=== PATIENT | female | born 1945 | race Caucasian/White ===

== ENCOUNTER 2017-10-04 06:18 | Emergency (ER) | payer OTHER, MEDICARE, SELFPAY ==
[2017-10-04 06:19] VITALS: BP 178/85; PULSE 65; RESP 16; TEMP 36.7; O2SAT 99; BMI 36.8
--- NOTE | 2017-10-04 06:32 | CT_ITS ---
STUDY: CT ABDOMEN AND PELVIS WITHOUT CONTRAST REASON FOR EXAM: Female, 72 years old. Abdominal pain for 3 days. History of diverticulitis, irritable bowel syndrome, and skin cancer. History of CABG, gastric sleeve procedure, cholecystectomy, appendectomy, and hysterectomy. RADIATION DOSAGE (If Supplied By Facility): CTDIvol = ( 15.23 ) mGy, DLP = ( 749.66 ) mGycm TECHNIQUE: Transaxial images were obtained from the dome of the diaphragm to the symphysis pubis without oral contrast, and without intravenous contrast. Sagittal and coronal images were reconstructed. Individualized dose optimization techniques were used for this CT. COMPARISON: 02/01/2016. FINDINGS: There are areas of atelectasis at the visualized lung bases bilaterally as well as calcified pulmonary granulomas. There are coronary artery calcifications. There are sternotomy wires and surgical clips suggesting previous CABG. Normal liver. Gallbladder is not identified, consistent with history of cholecystectomy. There is no demonstrated bile duct dilatation. There calcified granulomas in the spleen. Normal pancreas. Normal bilateral adrenal glands. Normal right kidney. Normal left kidney. Patient is status post gastric sleeve procedure. There is a small hiatal hernia. Normal small intestine. There are colonic diverticula. There is mural thickening in the proximal sigmoid colon and there is adjacent phlegmonous fat infiltration, consistent with acute diverticulitis. There is no demonstrated abscess, free intraperitoneal air, or ascites. There is non-visualization of the appendix, consistent with given history of prior appendectomy. There is diffuse atherosclerotic calcification of the abdominal aorta, without a demonstrated aneurysm. Normal inferior vena cava. Normal retroperitoneum. Normal urinary bladder. There is absence of the uterus consistent with a prior hysterectomy. There is a small umbilical hernia which contains fat, but no bowel. There are diffuse degenerative changes of the visualized lumbar spine. There is grade 1 anterolisthesis at the L4-5 level, on a degenerative basis. CT/Abdomen/Pelvis without Cont IMPRESSION: Acute diverticulitis of the proximal sigmoid colon. There is no demonstrated diverticula abscess, free intraperitoneal air, or ascites. Atherosclerosis. Previous gastric sleeve procedure. Small hiatal hernia. Previous cholecystectomy, appendectomy, and hysterectomy. Electronically Signed: Sharad Sinha MD at 7:29 EST , Service support ,
--- NOTE | 2017-10-04 06:35 | ED.DCSUM_ITS ---
- ER Visit Summary Date of Service: 10/04/17 Chief Complaint: [Abdominal pain] History of Present Illness: The patient is a 72 F [presents the emergency department with abdominal pain. It started 2 months ago. It slowly getting worse. She has chronic diarrhea that is unchanged. She has occasional nausea and vomiting after eating which she attributes to her gastric sleeve. No fevers or chills. She has had some frequency with urine this is not acute either. She states it does hurt to walk and to sit forward in her left lower quadrant. She gets some cramping across her upper abdomen but attributes that to her IBS. She has a history of coronary artery disease status post CABG atrial fibrillation diverticulitis appendectomy cholecystectomy hysterectomy and multiple orthopedic surgeries] Physical Examination: [] Blood pressure 178/85 WN WD obese PERRL EOMI MMM NECK supple and nontender, no masses RRR no murmur rub or gallop, no peripheral edema, symmetric radial pulses CTAB no respiratory distress ABDOMEN is soft tenderness in the left lower quadrant, normal bowel sounds, no distension, no rebound or guarding SKIN is warm and dry no rashes Alert and Oriented x3, CN II-XII in tact, no motor or sensory deficits, gait normal No lymphadenopathy Test Results: [] Emergency Department Course and Treatment: [Was given morphine and Zofran. Screening labs were obtained. Urinalysis was sent. CT was ordered. CT shows acute diverticulitis. Labs were unremarkable. Patient is very stable. She will be given Cipro Flagyl in [place] for home she was given precautions for which to return and will follow up with her doctor.] Treatment Plan: [] Disposition: [Discharge] Impression: [Acute diverticulitis] This note was generated with [employer] dictation software. It may contain incorrect words, spelling, and punctuation that were not noted in review of the chart prior to signing ED Disposition - Plan for ED Patient: Chief Complaint: Abd Pain Instructions: ED Diverticulitis Prescriptions: Hydrocodone Bitart/Apap 5-325 [[place] 5MG-325MG] 1 tablet PO Q6H PRN PRN 3 Days # 7 tablet PRN Reason: Pain Ciprofloxacin [Cipro] 500 mg PO BID #20 tablet Metronidazole [Flagyl] 500 mg PO Q6H #40 tablet Referrals: Musa Cintron III, MD [Primary Care Provider] - 3-5 Days
[2017-10-04 06:49] LABS: Absolute Lymphocyte Count 1.29 X10^3/ul (0.83-4.51); Absolute Neutrophil Count 4.2 X10^3/uL (2.0-7.7); Basophil# 0.02 X10^3/uL; Basophil% 0.3 % (0-1); Eosinophil# 0.15 X10^3/uL; Eosinophils% 2.4 % (0-5); Hematocrit 37.2 % (37-47); Hemoglobin 12.1 g/dl (12.0-15.0); Lymphocyte # 1.29 X10^3/ul (4.0); Lymphocyte % 20.3 % (19-41); Mean Corp Hgb Conc 32.5 g/gl (32-36); Mean Corpuscular Hgb 27.6 pg (27.0-32.0); Mean Corpuscular Volume 84.9 fL (81-99); Mean Platelet Vol. 8.6 fl (6.2-12.0); Monocyte# 0.66 X10^3/uL; Monocyte% 10.4 % (0-10); Neutrophil # 4.21 X10^3/uL (2.7-7.7); Neutrophil % 66.4 % (47-70); Platelet Count 248 K/mm3 (150-450); RBC Distribution Width CV 14.1 % (11.6-14.6); RBC Distribution Width SD 42.8 fl (35.1-43.9); Red Blood Count 4.38 M/mm3 (4.2-5.4); White Blood Count 6.3 K/mm3 (4.4-11.0)
[2017-10-04 06:57] LABS: POSITIVE COUNT NO; POSITIVE DIFFERENTIAL NO; POSITIVE MORPHOLOGY NO
[2017-10-04 07:05] LABS: ALB/GLOB Ratio 0.8 RATIO (0.9-2.4); AST(SGOT) 14 U/L (15-37); Alanine Aminotransfer ALT/SGPT 24 U/L (13-56); Albumin, Serum 3.2 g/dL (3.2-5.0); Alkaline Phosphatase 90 U/L (45-117); Anion Gap 9 (5-15); BUN 16 mg/dL (7-18); BUN/Creat Ratio 25.6 RATIO (10-20); Calcium,Total 8.4 mg/dL (8.5-10.1); Chloride 104 mmol/L (98-107); Creatinine, Serum 0.63 mg/dL (0.55-1.02); EST Glomerular Filtration Rate 99 mL/min (>60); Est Glom Filt Rate - Afr Amer 120 mL/min (>60); Estimated Creatinine Clearance 39.63 ml/min; Globulin 4.2 g/dL (2.2-4.2); Glucose 115 mg/dL (74-106); Lipase 120 U/L (73-393); Potassium 3.7 mmol/L (3.5-5.1); Protein, Total 7.4 g/dL (6.4-8.2); Sodium Level 140 mmol/L (136-145)
--- NOTE | 2017-10-04 07:26 | ED.DEP ---
ED Disposition - Plan for ED Patient: Chief Complaint: Abd Pain Instructions: ED Diverticulitis Prescriptions: Hydrocodone Bitart/Apap 5-325 [[place] 5MG-325MG] 1 tablet PO Q6H PRN PRN 3 Days #7 tablet PRN Reason: Pain Ciprofloxacin [Cipro] 500 mg PO BID #20 tablet Metronidazole [Flagyl] 500 mg PO Q6H #40 tablet Referrals: Musa Cintron III, MD [Primary Care Provider] - 3-5 Days
--- NOTE | 2017-10-04 07:36 | DCINST.ED_ITS ---
ED Disposition - Plan for ED Patient: Chief Complaint: Abd Pain Instructions: ED Diverticulitis Prescriptions: Hydrocodone Bitart/Apap 5-325 [[place] 5MG-325MG] 1 tablet PO Q6H PRN PRN 3 Days # 7 tablet PRN Reason: Pain Ciprofloxacin [Cipro] 500 mg PO BID #20 tablet Metronidazole [Flagyl] 500 mg PO Q6H #40 tablet Referrals: Musa Cintron III, MD [Primary Care Provider] - 3-5 Days
[2017-10-04 07:40] LABS: Mucous, Urine 0 SEEN /hpf (<or=2+); Red Blood Cells-Urine 0 SEEN /hpf (0-5)
[2017-10-04 07:42] LABS: Color, Urine Yellow (Yellow); Glucose, Dipstick Normal (Normal); Ketone-Dipstick Negative (Negative); Leukocyte Esterase-Dipstick 500 /ul (Negative); Nitrite-Dipstick Negative (Negative); Occult Blood-Urine Negative /ul (Negative); Protein-Dipstick Negative (Negative); Urine Bilirubin Dipstick Negative (Negative); Urine Clarity Clear (Clear); Urine Urobilinogen Normal (Normal)
[2017-10-04 07:50] LABS: Bacteria 1+ /hpf (None Seen); Squamous Epithelial Cells - UA 5-10 SEEN /hpf (5-10); White Blood Cells 0-5 SEEN /hpf (0-5)
[2017-10-04 08:04] VITALS: BP 187/75; PULSE 54; RESP 18; O2SAT 98
== END 2017-10-04 08:06 | disposition home or self-care (01) ==
LOC: ED 07:01
PROVIDERS: Emergency Provider Emergency Medicine; Family Provider Family Medicine; PCP Family Medicine
DX: K57.92 Diverticulitis of intestine, part unspecified, without perforation or abscess without bleeding (principal); I25.10 Atherosclerotic heart disease of native coronary artery without angina pectoris; I48.91 Unspecified atrial fibrillation; E66.9 Obesity, unspecified; K58.9 Irritable bowel syndrome, unspecified; Z90.49 Acquired absence of other specified parts of digestive tract; Z90.710 Acquired absence of both cervix and uterus; Z95.1 Presence of aortocoronary bypass graft
CPT/HCPCS: 74176; 80053; 81001; 83690; 85025; 96374; 96375; 99283

== ENCOUNTER → 2017-12-03 10:26 | Outpatient (CLI) | payer OTHER, MEDICARE, SELFPAY ==
[2017-12-03 11:34] LABS: Hemoglobin A1c 7.3 % (4.2-6.3)
[2017-12-03 11:44] LABS: AST(SGOT) 20 U/L (15-37); Alanine Aminotransfer ALT/SGPT 25 U/L (13-56); Albumin, Serum 3.4 g/dL (3.2-5.0); Alkaline Phosphatase 81 U/L (45-117); Bilirubin, Direct 0.07 mg/dL (0.00-0.30); Cholesterol 214 mg/dL (200); Globulin 4.4 g/dL (2.2-4.2); High Density Lipoprotein 54 mg/dL; Protein, Total 7.8 g/dL (6.4-8.2); Triglycerides 96 mg/dL; Very Low Density Lipoprotein 19 mg/dL (5-40)
== END ==
PROVIDERS: Internal Medicine Cardiovascular Disease; Family Provider Family Medicine; PCP Family Medicine; Visit Provider Physician Assistant Medical
DX: I25.10 Atherosclerotic heart disease of native coronary artery without angina pectoris (principal); I48.0 Paroxysmal atrial fibrillation; E78.5 Hyperlipidemia, unspecified; Z79.899 Other long term (current) drug therapy
CPT/HCPCS: 36415; 80061; 80076; 83036

== ENCOUNTER → 2017-12-13 14:41 | Outpatient (CLI) | payer OTHER, MEDICARE, SELFPAY ==
--- NOTE | 2017-12-13 15:00 | ECHOD_ITS ---
Reason For Study: AORTIC STENOSIS Procedure This was a 2D Doppler, Color Flow transthoracic echocardiogram. Exam performed in department. Left Ventricle Normal LV size. Left ventricular systolic function is normal. The estimated ejection fraction is 55 %. Transmitral diastolic flow velocities suggest mild (stage 1) diastolic dysfunction (reversed pattern). No regional wall motion abnormalities noted. Right Ventricle Normal RV size. Normal systolic function. Atria Normal left atrium. Normal right atrium. Bubble contrast study negative for right to left interatrial shunt. Mitral Valve Normal mitral valve. Trivial eccentric mitral valve insufficiency. Tricuspid Valve Normal tricuspid valve. Mild (1+) tricuspid valve insufficiency. Pulmonary artery systolic pressure is 25 mmHg. Aortic Valve Trisinus/trileaflet aortic valve. Moderate focal aortic valve calcification. Peak aortic valve gradient 18 mmHg. Mean aortic valve gradient 10 mmHg. Mild to moderate aortic stenosis. Calculated aortic valve area (continuity equation) is 1.2 cm2. Pulmonic Valve Normal pulmonic valve. Great Vessels Normal aortic root. The pulmonary artery is normal size. Normal inferior vena cava. Pericardium/Pleural No pericardial effusion. Medication 22 gauge I.V. with prn adaptor inserted into right arm. Performed a rapid injection of agitated mix of 9 cc saline and 1cc air to assess for atrial septal defect. MMode/2D Measurements & Calculations LVIDd: 4.4 cm IVSd: 1.1 cm LVOT diam: 2.0 cm LVIDs: 3.0 cm LVPWd: 1.0 cm LVOT area: 3.2 cm2 RVDd: 2.7 cm FS: 32.2 % Ao root diam: 3.6 cm LAV(MOD-bp): 51.5 ml EDV(MOD-sp4): 88.4 ml LAV(MOD-bp) Indexed: 27.8 ml/m2 ESV(MOD-sp4): 33.3 ml LAV(MOD-sp2): 46.3 ml EF(MOD-sp4): 62.4 % LAV(MOD-sp4): 51.3 ml EDV(MOD-sp2): 67.6 ml SV(MOD-sp4): 55.2 ml SV(MOD-sp2): 39.9 ml EF(MOD-sp2): 59.1 % Aortic Valve Planimetry: 1.6 cm2 LA A4 area: 18.4 cm2 RA A4 area: 15.5 cm2 Doppler Measurements & Calculations MV E max james: 54.0 cm/sec Lat Peak E' James: 6.2 cm/sec Med Peak E' James: 3.1 cm/sec MV A max james: 78.6 cm/sec E/E' lat: 8.7 E/E' med: 17.4 MV E/A: 0.69 Ao V2 max: 214.6 cm/sec LV V1 max: 83.0 cm/sec SV(LVOT): 62.5 ml Ao max P.5 mmHg LV V1 max P.8 mmHg Ao V2 mean: 149.2 cm/sec LV V1 mean P.5 mmHg Ao mean P.9 mmHg LV V1 mean: 57.2 cm/sec Ao V2 VTI: 45.2 cm LV V1 VTI: 19.7 cm DELISA(I,D): 1.4 cm2 DELISA(V,D): 1.2 cm2 PA V2 max: 96.1 cm/sec TR max james: 232.2 cm/sec TR max P.7 mmHg Interpretation Summary Normal LV size. Left ventricular systolic function is normal. The estimated ejection fraction is 55 %. Transmitral diastolic flow velocities suggest mild (stage 1) diastolic dysfunction (reversed pattern). Bubble contrast study negative for right to left interatrial shunt. Mild to moderate aortic stenosis. Calculated aortic valve area (continuity equation) is 1.2 cm2. Compared to prior study, there is no significant change. Ordering Physician: Tita Garcia/Chance Cuellar Referring Physician: RICKY MUNIZ Performed By: Denisha Bocanegra, MICHAELCS, RVT
== END ==
PROVIDERS: Family Provider Family Medicine; PCP Family Medicine; Visit Provider Physician Assistant Medical
DX: I35.0 Nonrheumatic aortic (valve) stenosis (principal)
CPT/HCPCS: 93306; A4216

== ENCOUNTER 2018-02-01 06:17 | Emergency (ER) | payer OTHER, MEDICARE, SELFPAY ==
[2018-02-01 06:18] VITALS: BP 169/82; PULSE 67; RESP 17; TEMP 36.7; O2SAT 98; BMI 34.2
--- NOTE | 2018-02-01 06:28 | CT_ITS ---
STUDY: CT ABDOMEN AND PELVIS WITHOUT CONTRAST REASON FOR EXAM: Female, 72 years old. Left flank pain RADIATION DOSAGE (If Supplied By Facility): CTDIvol = ( 17.75 ) mGy, DLP = ( 833.87 ) mGycm TECHNIQUE: Transaxial images were obtained from the dome of the diaphragm to the symphysis pubis without oral contrast, and without intravenous contrast. Sagittal and coronal images were reconstructed. Individualized dose optimization techniques were used for this CT. COMPARISON: None. FINDINGS: The visualized lung bases are unremarkable. The visualized portions of the heart are within normal limits. Normal liver. There is non-visualization of the gallbladder, which may be secondary to either contraction or a prior cholecystectomy. Normal spleen. Normal pancreas. Normal bilateral adrenal glands. Normal right kidney. Normal left kidney. There is a small hiatal hernia. Normal small intestine. There are multiple colonic diverticula consistent with diverticulosis. There is non-visualization of the appendix. There is diffuse atherosclerotic calcification of the abdominal aorta, without a demonstrated aneurysm. Normal inferior vena cava. Normal retroperitoneum. Normal urinary bladder. Normal abdominal wall. There are diffuse degenerative changes of the visualized lumbar spine. CT/Abdomen/Pelvis without Cont IMPRESSION: Colon diverticulosis. Electronically Signed: Jorge Bee MD at 7:30 EDT Tel , Service support ,
--- NOTE | 2018-02-01 06:30 | ED.DCSUM_ITS ---
- ER Visit Summary Date of Service: 02/01/18 Chief Complaint: [] Left lower abdominal pain 3 days waxes and wanes aching with intermittent sharp stabbing pain in the left flank. Denies any nausea vomiting or diarrhea. She had diverticulitis in September but does not feel the same. No diarrhea. She used heat. She is aspirin. She has dysuria and frequency. No fevers or chills. History of Present Illness: The patient is a 72 F 3 days of pain. Physical Examination: [] Vital signs reviewed General: Well-nourished well-developed Head: Normocephalic atraumatic Eyes: Pupils equal round and reactive to light extraocular movements intact ENT: TMs clear no hemotympanum no trauma Neck: Nontender full range of motion Cardiovascular: Regular rate rhythm no murmurs normal S1-S2 Respiratory: No distress clear to auscultation bilaterally chest nontender Abdomen: Soft nontender nondistended normal bowel sounds no masses Back: Nontender no CVA tenderness Extremities: Nontender active range of motion ?4 extremities no trauma Skin: Normal color no trauma Neuro alert oriented cranial nerves II through XII intact normal strength sensation reflexes Test Results: [] Emergency Department Course and Treatment: [] Patient has intermittent sharp stabbing left flank pain rating to the groin. I think she has a kidney stone. She has never had one before. Patient given IV fluids. Declined pain meds. Lab work and CT obtained. This will be signed out to the oncoming physician Dr. Jean for further evaluation. Treatment Plan: [] Disposition: [] Impression: [] Left-sided flank pain This note was generated with [employer] dictation software. It may contain incorrect words, spelling, and punctuation that were not noted in review of the chart prior to signing ED Disposition - Plan for ED Patient: Chief Complaint: Abd Pain Referrals: Musa Cintron III, MD [Primary Care Provider] -
[2018-02-01] MEDS: 0.9% Normal Saline 1,000 ML 1000 ML IV (06:47)
[2018-02-01 06:54] LABS: Mucous, Urine 0 SEEN /hpf (<or=2+); Red Blood Cells-Urine 0 SEEN /hpf (0-5)
[2018-02-01 06:55] LABS: Color, Urine Yellow (Yellow); Glucose, Dipstick Normal (Normal); Ketone-Dipstick Negative (Negative); Leukocyte Esterase-Dipstick 500 /ul (Negative); Nitrite-Dipstick Negative (Negative); Occult Blood-Urine Negative /ul (Negative); Protein-Dipstick 30 mg/dl (Negative); Urine Bilirubin Dipstick Negative (Negative); Urine Clarity Sl. Cloudy (Clear); Urine Urobilinogen Normal (Normal)
[2018-02-01 06:56] LABS: Absolute Lymphocyte Count 1.64 X10^3/ul (0.83-4.51); Absolute Neutrophil Count 2.6 X10^3/uL (2.0-7.7); Basophil# 0.02 X10^3/uL; Basophil% 0.4 % (0-1); Eosinophil# 0.21 X10^3/uL; Eosinophils% 4.3 % (0-5); Hematocrit 39.6 % (37-47); Hemoglobin 12.8 g/dl (12.0-15.0); Lymphocyte # 1.64 X10^3/ul (4.0); Lymphocyte % 33.3 % (19-41); Mean Corp Hgb Conc 32.3 g/gl (32-36); Mean Corpuscular Hgb 27.8 pg (27.0-32.0); Mean Corpuscular Volume 85.9 fL (81-99); Mean Platelet Vol. 8.5 fl (6.2-12.0); Monocyte# 0.44 X10^3/uL; Monocyte% 8.9 % (0-10); Neutrophil # 2.61 X10^3/uL (2.7-7.7); Neutrophil % 53.1 % (47-70); Platelet Count 226 K/mm3 (150-450); RBC Distribution Width CV 14.2 % (11.6-14.6); RBC Distribution Width SD 44.7 fl (35.1-43.9); Red Blood Count 4.61 M/mm3 (4.2-5.4); White Blood Count 4.9 K/mm3 (4.4-11.0)
[2018-02-01 07:03] LABS: POSITIVE COUNT NO; POSITIVE DIFFERENTIAL NO; POSITIVE MORPHOLOGY NO
[2018-02-01 07:04] LABS: Squamous Epithelial Cells - UA 0-5 SEEN /hpf (5-10); White Blood Cells 10-25 SEEN /hpf (0-5)
[2018-02-01 07:05] LABS: Bacteria RARE /hpf (None Seen)
[2018-02-01 07:09] LABS: Anion Gap 6 (5-15); BUN 24 mg/dL (7-18); BUN/Creat Ratio 34.1 RATIO (10-20); Calcium,Total 8.8 mg/dL (8.5-10.1); Chloride 106 mmol/L (98-107); EST Glomerular Filtration Rate 87 mL/min (>60); Est Glom Filt Rate - Afr Amer 105 mL/min (>60); Estimated Creatinine Clearance 39.63 ml/min; Glucose 104 mg/dL (74-106); Potassium 3.5 mmol/L (3.5-5.1); Sodium Level 140 mmol/L (136-145)
--- NOTE | 2018-02-01 08:23 | ED.DEP ---
ED Disposition - Plan for ED Patient: Chief Complaint: Abd Pain Instructions: ED UTI Cystitis Female Prescriptions: Ciprofloxacin [Cipro] 500 mg PO BID #14 tab Referrals: Musa Cintron III, MD [Primary Care Provider] -
[2018-02-01 08:50] VITALS: BP 152/86; PULSE 62; RESP 18; O2SAT 100
== END 2018-02-01 08:51 | disposition home or self-care (01) ==
PROVIDERS: Emergency Medicine; Emergency Provider Emergency Medicine; Family Provider Family Medicine; PCP Family Medicine
DX: M25.552 Pain in left hip (principal); N30.90 Cystitis, unspecified without hematuria; K57.90 Diverticulosis of intestine, part unspecified, without perforation or abscess without bleeding; E66.9 Obesity, unspecified; E78.00 Pure hypercholesterolemia, unspecified; E11.9 Type 2 diabetes mellitus without complications; I48.91 Unspecified atrial fibrillation
CPT/HCPCS: 74176; 80048; 81001; 85025; 99283; J7030; A4216

== ENCOUNTER → 2018-07-11 06:38 | Outpatient (CLI) | payer OTHER, MEDICARE, SELFPAY ==
--- NOTE | 2018-07-11 11:11 | STRESSREP ---
Stress Test Report Exercise myocardial perfusion stress test. 72-year-old lady with a history of previous coronary bypass surgery. Medications Zocor metoprolol. Stress protocol: Resting EKG demonstrates sinus bradycardia with a rate of 54 bpm normal intervals are noted resting blood pressure is 140/80 mmHg. The patient exercised according to regular Hardik protocol for total duration of 4 minutes and 40 seconds completing 1 minute and 40 seconds into stage II of the Hardik protocol. The maximum heart rate attained was 127 bpm which was 86% of maximum predicted heart rate the maximum workload was 6.6 metabolic equivalents. At rest there were no ST or T wave changes noted suggest ischemia at peak exercise nonspecific ST-T wave changes were noted with normally the criteria for ischemia. Patient complained of slight tightness in the upper chest which eased up on recovery. The resting blood pressure was 140/80 mmHg with a peak blood pressure 180/80 mmHg. No clinical angina was noted. Myocardial perfusion protocol. 14.1 mCi of technetium 99m sestamibi was injected at rest. The patient exercised for 4 minutes and 40 seconds attaining 86% maximum predicted heart rate and a workload of 6.6 metabolic equivalents. At peak exercise 43.9 mCi of technetium 99m sestamibi was injected stress images were obtained stress and rest images were reconstructed and compared in the short axis vertical long horizontal long axis. Gated images were also obtained. Perfusion SPECT analysis: Review of the stress images demonstrate normal uptake of tracer noted in all areas of the myocardium the resting images demonstrate normal uptake of tracer noted in all areas of the myocardium. No obvious areas of reversibility are noted to suggest ischemia no clinical angina is noted. Gated SPECT analysis: Review of the images demonstrate ejection fraction of 66% with no wall motion abnormalities present. Conclusion: Normal exercise myocardial perfusion stress test at a moderate workload. Preserved ejection fraction. Mild chest discomfort of questionable significance.
== END ==
PROVIDERS: Family Provider Family Medicine; PCP Family Medicine; Referring Provider Physician Assistant Medical; Visit Provider Physician Assistant Medical
DX: R07.9 Chest pain, unspecified (principal); E78.5 Hyperlipidemia, unspecified; I10 Essential (primary) hypertension; I48.0 Paroxysmal atrial fibrillation
CPT/HCPCS: 78452; 93017; A9500; A4216

== ENCOUNTER 2018-11-16 06:34 | Emergency (ER) | payer OTHER, MEDICARE, SELFPAY ==
[2018-11-16 06:35] VITALS: BP 140/61; PULSE 72; RESP 16; TEMP 36.7; O2SAT 98; BMI 35.0
--- NOTE | 2018-11-16 06:59 | CT_ITS ---
STUDY: CT ABDOMEN AND PELVIS WITH CONTRAST REASON FOR EXAM: Female, 73 years old. Left lower quadrant pain. History of diverticulitis. RADIATION DOSAGE (If Supplied By Facility): CTDIvol = ( 18.56 ) mGy, DLP = ( 1164.25 ) mGycm TECHNIQUE: Transaxial images were obtained from the dome of the diaphragm to the symphysis pubis without oral contrast. 100CC IV Isovue 300 was administered. Sagittal and coronal images were reconstructed. Individualized dose optimization techniques were used for this CT. COMPARISON: None. FINDINGS: The visualized lung bases are unremarkable. Cardiomegaly. Median sternotomy wires. Calcified left lower lobe granuloma. Normal liver. Nonvisualized gallbladder. There are multiple benign calcified granulomata of the spleen. Normal pancreas. Normal bilateral adrenal glands. Normal right kidney. Normal left kidney. Postsurgical changes of the stomach. Otherwise, within normal limits. Normal small intestine. Acute uncomplicated diverticulitis involving the descending colon. There is non-visualization of the appendix. Normal abdominal aorta. Normal inferior vena cava. Normal retroperitoneum. Normal urinary bladder. There is absence of the uterus consistent with a prior hysterectomy. Normal abdominal wall. There are diffuse degenerative changes of the visualized lumbar spine. CT/Abdomen/Pelvis W IV Cont ONLY IMPRESSION: Acute uncomplicated descending colonic diverticulitis. Remaining chronic findings as above Electronically Signed: Cesar Boogie DO at 8:35 EDT Tel , Service support ,
[2018-11-16 07:15] LABS: Absolute Lymphocyte Count 1.01 X10^3/ul (0.83-4.51); Basophil# 0.02 X10^3/uL; Basophil% 0.4 % (0-1); Eosinophil# 0.17 X10^3/uL; Eosinophils% 3.7 % (0-5); Hematocrit 38.5 % (37-47); Hemoglobin 12.5 g/dl (12.0-15.0); Lymphocyte # 1.01 X10^3/ul (4.0); Lymphocyte % 21.8 % (19-41); Mean Corp Hgb Conc 32.5 g/gl (32-36); Mean Corpuscular Hgb 27.2 pg (27.0-32.0); Mean Corpuscular Volume 83.9 fL (81-99); Mean Platelet Vol. 8.8 fl (6.2-12.0); Monocyte# 0.46 X10^3/uL; Monocyte% 9.9 % (0-10); Neutrophil # 2.98 X10^3/uL (2.7-7.7); Neutrophil % 64.2 % (47-70); Platelet Count 203 K/mm3 (150-450); RBC Distribution Width CV 14.9 % (11.6-14.6); RBC Distribution Width SD 45.9 fl (35.1-43.9); Red Blood Count 4.59 M/mm3 (4.2-5.4); White Blood Count 4.6 K/mm3 (4.4-11.0)
[2018-11-16 07:16] LABS: POSITIVE COUNT NO; POSITIVE DIFFERENTIAL NO; POSITIVE MORPHOLOGY NO
[2018-11-16 07:22] LABS: Anion Gap 8 (5-15); BUN 22 mg/dL (7-18); BUN/Creat Ratio 25.4 RATIO (10-20); Calcium,Total 8.7 mg/dL (8.5-10.1); Chloride 107 mmol/L (98-107); Creatinine, Serum 0.87 mg/dL (0.55-1.02); EST Glomerular Filtration Rate 68 mL/min (>60); Est Glom Filt Rate - Afr Amer 82 mL/min (>60); Estimated Creatinine Clearance 44.87 ml/min; Glucose 132 mg/dL (74-106); Potassium 3.4 mmol/L (3.5-5.1); Sodium Level 141 mmol/L (136-145)
[2018-11-16] MEDS: DiphenhydrAMINE 50 MG/ML Syringe 25 MG IV (07:46)
[2018-11-16] MEDS: 0.9% Normal Saline 1,000 ML 1000 ML IV (07:46)
--- NOTE | 2018-11-16 07:50 | ED.DCSUM_ITS ---
History of Present Illness Chief Complaint: Abd Pain Informant: Patient Onset: Days Context: Sudden Onset Timing: Continuous, Waxes and wanes Quality: Discomfort and pain Location: Left lower quadrant Current Severity: Mild Maximum Severity: Severe Worsened by: Turning, lying on the left side, walking Relieved by: Nothing Associated Symptoms: Fever, chills, nausea and urinary symptoms Narrative: Patient is an elderly woman with history of diverticulitis x5. Presents with left lower quadrant abdominal pain associated with nausea. She reports 6-7 stools a day, which is her norm. She has a history of irritable bowel syndrome. She also reports dysuria and frequency times 1 year. She denies history of interstitial cystitis. She does report subjective fever. She denies chills. There is no rheumatic fever, SBE, heart murmur, or being immune suppressed. She denies respiratory cardiac symptoms. She denies skin lesions. She denies back pain. Prior similar symptoms: Yes Recent Illness/Hospitalization: No - She saw her physician who was concerned about arthritis. - Past Medical History (1) Atherosclerotic heart disease of [place] coronary artery without angina pectoris Status: Chronic (2) Diabetes mellitus Status: Chronic Comment: Had gastric by pass several years ago and lost several pounds. Has not checked BG readings since with any consistency as her Bg readings had done well. Is here today to see what she should be doing. I will place a sheela sensor for her to use ten days and determine if her BG are doing well. Her last A1c is 7.3 She does continue on lisinopril and on simvastatin. Continues on asa daily. (3) Encounter for long-term current use of high risk medication Status: Chronic (4) H/O right coronary artery stent placement Status: Chronic Comment: PTCA with stent of proximal AV CX @ [facility] 07/20/03 (5) Hyperlipidemia Status: Chronic (6) Paroxysmal atrial fibrillation Status: Chronic (7) Presence of aortocoronary bypass graft Status: Chronic Comment: CABG X 3, HUSTON to LAD, SVG to OM & SVG to anterior marginal @ [facility] by Dr. Fitzgerald, 11/25/15 (8) H/O: hysterectomy Status: Resolved (9) History of carpal tunnel surgery Status: Resolved Comment: bilateral (10) History of knee replacement Status: Resolved Comment: revision left knee 08/02/16 (11) History of tonsillectomy Status: Resolved (12) History of total knee replacement Status: Resolved Comment: bilateral (13) Hx of appendectomy Status: Resolved (14) Hx of cholecystectomy Status: Resolved (15) Hx of repair of rotator cuff Status: Resolved Past Medical History - Allergies and Home Meds Allergies/Adverse Reactions: Allergies ciprofloxacin Allergy (Verified 11/16/18 06:38) Other Iodinated Contrast- Oral and IV Dye [Iodinated Contrast Media - IV Dye] Allergy (Verified 06/12/18 12:59) Other SNEEZING AND THROAT ITCHING meperidine HCl [From Demerol] Adverse Reaction (Verified 06/12/18 12:59) Vomiting promethazine [From Phenergan] Adverse Reaction (Verified 06/12/18 12:59) anxiety,restlessness rosuvastatin calcium [From Crestor] Adverse Reaction (Verified 06/12/18 12:59) Pain in joints Primary Care Physician: Musa Cintron III, MD [Primary Care Provider] - Prior records reviewed: Yes Surgical History: - - Patient also reports history of sleeve procedure with significant weight loss. She is presently on no meds. Smoking Status: Never smoker Alcohol: None Drugs: None Review of Systems General: Reports: Chills, Fever, Malaise, Subjective, Sweats Eyes: Denies: Visual changes - bilaterally, Diplopia ENT: Denies: Rhinorrhea, Sore throat Cardiovascular: Denies: Chest pain, Palpitations Respiratory: Denies: Dyspnea, Cough, Dyspnea on exertion Gastrointestinal: Reports: Abdominal pain, Nausea, Diarrhea - Diarrhea is chronic. Denies: Vomiting, Melena, Hematochezia Genitourinary: Reports: Dysuria, Frequency. Denies: Hematuria Musculoskeletal: Denies: Myalgias, Arthralgias, Neck pain, Back pain, Swelling, Extremity Pain, -, - Skin: Denies: Rash, Wounds Neurological: Reports: Weakness. Denies: Headache, Parasthesia, Numbness, -, - Hematologic: Denies: Easy bruising, Easy bleeding Physical Exam Vital Signs/Narrative: Vital Signs Temp Pulse Resp BP Pulse Ox 11/16/18 06:35 98.0 F 72 16 140/61 H 98 Inital Vital Signs reviewed: Yes General: Well nourished, Well developed, Obese, No Acute Distress Head: Normocephalic, Atraumatic Eyes: Perrl, EOMI. Negative for: Pale conjunctiva, Scleral icterus ENT: No rhinorrhea, Dry mucous membranes Neck: Supple, Nontender, No JVD Cardiovascular: Regular rate, Regular rhythm, No murmurs, Normal S1, Normal S2 Respiratory: No distress, CTA bilaterally, Chest nontender Abdomen: Soft, No masses, Tender, Guarding, Rebound tenderness, Hypoactive bowel sounds, - - Point of maximal tenderness left lower quadrant. There is referred pain to the left lower quadrant. There is percussion tenderness as well.. Negative for: Hepatomegaly, Splenomegaly, Mass, Pulsatile mass, Ventral hernia, Inguinal hernia, Umbilical hernia Rectal: Deferred Extremities: Nontender, No edema Skin: Normal color, No rash. Negative for: Cyanosis, Jaundice Neurological: Alert, Oriented x3, Cranial nerves II-XII grossly intact, Normal Strength, Normal Sensation Psychological: Normal affect, Normal Mood Diagnostic/Tx/Re-eval Impressions Abdomen/Pelvis CT 11/16/18 06:59 IMPRESSION: Acute uncomplicated descending colonic diverticulitis. Remaining chronic findings as above Electronically Signed: Cesar Boogie DO at 8:35 EDT Tel , Service support , 11/16/18 06:59 Abdomen/Pelvis W IV Cont ONLY [CT] Stat Laboratory Results 11/16/18 11/16/18 06:40 06:40 WBC 4.6 RBC 4.59 Hgb 12.5 Hct 38.5 MCV 83.9 MCH 27.2 MCHC 32.5 RDW 14.9 H RDW Differential 45.9 H Plt Count 203 MPV 8.8 Immature Gran % (Auto) 0.000 Neut % (Auto) 64.2 Lymph % (Auto) 21.8 [place] % (Auto) 9.9 Eos % (Auto) 3.7 Baso % (Auto) 0.4 Absolute Neuts (auto) 3.0 Absolute Lymphs (auto) 1.01 Total Counted Not Reportable Sodium 141 Potassium 3.4 L Chloride 107 Carbon Dioxide 26.0 Anion Gap 8 BUN 22 H Creatinine 0.87 Estim Creat Clear Calc 44.87 Est GFR (MDRD) Af Amer 82 Est GFR (MDRD) Non-Af 68 BUN/Creatinine Ratio 25.4 H Glucose 132 H Calcium 8.7 - Medical Decision Making With urinary symptoms for 1 year suspect interstitial cystitis. With prior history of diverticulitis maximal tenderness left lower quadrant with peritoneal findings and subjective fever and chills will obtain CT of the abdomen to evaluate for perforation. Appropriate blood work was ordered to assess white count, H&H, electrolyte and renal function. I was informed by medical laboratory technicians the patient has a iodine allergy. Patient does not know the exact reaction. She was premedicated with Pepcid and Benadryl. Since there is concern for perforation IV steroids were not administered. White count and differential normal. CT reveals uncomplicated descending diverticulitis. Patient has numerous allergies. Will review allergies prior to prescribing antibiotics. ED Disposition - Plan for ED Patient: Disposition: Home or Assisted Living Diagnosis: Diverticulitis descending colon, Acute diverticulitis of intestine, Acute hyperglycemia Instructions: ED Diverticulitis Prescriptions: Oxycodone HCl/Acetaminophen [Percocet 5/325] 1 tab PO Q6H PRN PRN 3 Days #12 tab PRN Reason: Pain Amox/Clavulanate Tablet [Augmentin Tablet] 875 mg PO Q12H #20 tablet Metronidazole 500 mg PO TID #20 tablet Referrals: Musa Cintron III, MD [Primary Care Provider] - 3-5 Days if not improving
[2018-11-16 08:53] LABS: Mucous, Urine 0 SEEN /hpf (<or=2+); Red Blood Cells-Urine 0 SEEN /hpf (0-5)
[2018-11-16 08:56] LABS: Color, Urine Yellow (Yellow); Glucose, Dipstick Normal (Normal); Ketone-Dipstick Negative (Negative); Leukocyte Esterase-Dipstick 100 /ul (Negative); Nitrite-Dipstick Negative (Negative); Occult Blood-Urine Negative /ul (Negative); Protein-Dipstick 15 mg/dl (Negative); Urine Bilirubin Dipstick Negative (Negative); Urine Clarity Sl. Cloudy (Clear); Urine Urobilinogen Normal (Normal); Urine pH 6.5 (5.0 - 8.0)
[2018-11-16 09:03] LABS: Bacteria RARE /hpf (None Seen); Hyaline Cast 0-5 SEEN /lpf (0-5); Squamous Epithelial Cells - UA 0-5 SEEN /hpf (5-10); White Blood Cells 0-5 SEEN /hpf (0-5)
[2018-11-16] MEDS: metroNIDAZOLE 500 MG Tablet PO (09:26)
[2018-11-16] MEDS: Amox/Clavulanate 875 MG Tablet PO (09:26)
[2018-11-16 09:27] VITALS: RESP 18
== END 2018-11-16 09:28 | disposition home or self-care (01) ==
PROVIDERS: Emergency Provider Emergency Medicine; Family Provider Family Medicine; PCP Family Medicine
DX: K57.32 Diverticulitis of large intestine without perforation or abscess without bleeding (principal); E11.65 Type 2 diabetes mellitus with hyperglycemia; I48.0 Paroxysmal atrial fibrillation; I25.10 Atherosclerotic heart disease of native coronary artery without angina pectoris; E78.5 Hyperlipidemia, unspecified; Z95.5 Presence of coronary angioplasty implant and graft; Z95.1 Presence of aortocoronary bypass graft; Z96.659 Presence of unspecified artificial knee joint; Z90.49 Acquired absence of other specified parts of digestive tract
CPT/HCPCS: 74177; 80048; 81001; 85025; 96361; 96374; 96375; 99283; J7030; Q9967; A4216; J3490

== ENCOUNTER 2018-12-29 12:30 | Outpatient (RCR) | payer OTHER, MEDICARE, SELFPAY ==
--- NOTE | 2018-11-25 07:53 | HP.PTEVAL_ITS ---
Patient's Visit Information FAUSTO YBARRA is a 73 year old F referred to Physical Therapy by Musa Cintron III, MD with a diagnosis of Lumbar radiculopathy with radiation down L LE. Date of Evaluation: 11/17/18 Physical Therapist: Freeman Faria DPT - Visit Plan Frequency: 2-3x /Week Duration: 4 Weeks Plan: Start with postural controll and core/hip strengthening in aquatic setting. - Subjective Findings: Pt. is here today for her initial evaluation with diagnosis of lumbar radiculopathy. Pt. has a history of radiating LBP down her LLE. Pt. has had injections over the past 20+ years, but no surgical interventions. Pt. has also had B knee replacements with L revision. Pt. reports constant numbness in anterior L thigh that is unchanging in all positions. Pt. reports pain in similar region and in lumbar spine. Pt. reports pain extends to knee foot on L side. Pt. has also been diagnosed with generalized shrogens disease, autoimmune, but no longer treats this as patient reports no effect with previous treatments. Pt. is less active as she has previously been due to pain and fatigue Pt. reports pain at multiple sites including B wrists, shoulders, B knees (L worse than R), lumbar spine, cervical spine, B feet and L thigh. Pt. is hopeful to get stronger and become more active allowing for increased tolerance to an active lifestyle. - Pain L thigh Pain Intensity (Out of 10): 5 Pain Intensity Range: 3, 8 L knee Pain Intensity (Out of 10): 5 Pain Intensity Range: 3, 8 Lumbar spine Pain Intensity (Out of 10): 5 Pain Intensity Range: 3, 7 B feet Pain Intensity (Out of 10): 4 Pain Intensity Range: 2, 7 R wrist Pain Intensity (Out of 10): 5 Pain Intensity Range: 3, 8 cervical spine Pain Intensity (Out of 10): 3 Pain Intensity Range: 1, 6 - Objective POSTURE: Pt. has generalized slouched posture. Pt. has FH posture, decrased lumbar lordosis. Pt. has equal iliac crest heights, no signs of lateral shift at this point in time. Pt. has increased edema of L knee, non pitting. PALPATION: Pt. has tenderness along lumbar paraspinals, no pain with palpation of L thigh. Pt. reports decreased sensation of L upper thigh, improves more distally. NEURO: Pt. has decreased sensation of L upper thigh, normal distal LLE, normal RLE. Pt.has decrased L patellar DTR, normal L achilles DTR, normal R patellar and achilles DTR. Pt. is able to rise on heels and toes without marked weakness, but does require balance aide. ROM: LUMBAR SPINE: flexion nil loss NE, ext mod loss increase NW, SB min loss bilat increase NW, rotation min loss bilat increase NW. Pt. has normal HS length, tight hip flexors bilaterally. MMT: RLE- ankle 5/5 throughot; knee- ext 4+/5, flexion 4+/5; hip- flexion 4/5, abd 4/5, ext 4/5. LLE- ankle 5/5 throughout; knee- ext 4/5, flexion 4/5; hip- flexon 4/5, abd 4/5, ext 4/5. Core strength- poor. GAIT: Pt. ambulates without AD. Pt. has generalized flexed posture. Pt. has increased latearl postural sway, with increased hip lateral sway. pt. has decreased step length and tends to collapse down on L side during stance phase. STAIRS: is able to negotiate steps with step to pattern, loading mostly RLE with ascending and descending. Pt. uses BHR to complete. - Special Tests L/S Slump test left side: Positive L/S Slump test right side: Negative L/S Left Straight Leg Raise: Negative L/S Right Straight Leg Raise: Negative Lumbar Standing: Flexion - Mechanical Response: No effect Lumbar Standing: Flexion - Symptoms During Testing: No effect Lumbar Standing: Flexion - Symptoms After Testing: No effect Lumbar Standing: Extension - Mechanical Response: No effect Lumbar Standing: Extension - Symptoms During Testing: Increases Lumbar Standing: Extension - Symptoms After Testing: No worse Lumbar Standing: Right Side Glides - Mechanical Response: No effect Lumbar Standing: Right Side [place] - Symptoms During Testing: No effect Lumbar Standing: Right Side [place] - Symptoms After Testing: No effect Lumbar Standing: Left Side [place] - Mechanical Response: No effect Lumbar Standing: Left Side [place] - Symptoms During Testing: No effect Lumbar Standing: Left Side [place] - Symptoms After Testing: No effect Lumbar Lying: Flexion - Mechanical Response: No effect Lumbar Lying: Flexion - Symptoms During Testing: Decreases Lumbar Lying: Flexion - Symptoms After Testing: No better Lumbar Lying: Extension - Mechanical Response: No effect Lumbar Lying: Extension - Symptoms During Testing: Increases Lumbar Lying: Extension - Symptoms After Testing: Worse - Goals Goal 1:: Pt. to be I with HEP. Goal Time Frame: 4-6 Weeks Goal 2:: Pt. to have increased BLE and core strength by 1/2 grade of all effected musculature. Goal Time Frame: 4-6 Weeks Goal 3:: Pt. to ambulate greater than 1 mile with 0-2/10 pain in lumbar spine and LLE allowing for increased healthy lifestyle. Goal Time Frame: 4-6 Weeks Goal 4:: Pt. to sleep throughout the night without increase in symptoms allowing for increaed quality of life. Goal Time Frame: 4-6 Weeks Goal 5:: Pt. to have decreased radiating symptoms by 25% in LLE. Goal Time Frame: 4-6 Weeks - Rehabilitation Potential Physical Therapy Diagnosis: Pt. has signs and symptoms consistent with Lumbar radiculopathy with radiation down L LE. Pt. would benefit from PT to increase core stability inorder to reduce stress applied to lumbar spine with all functional mobility. Rehabilitation Potential: Fair - Anticipated Interventions Patient/Client Instruction: Educate patient on: Condition, Plan of Care, Risk Factors, Benefits of Fitness Program For the Purpose of:: To improve decision making, To facilitate caregiver knowledge, To improve self management, To prevent re-injury, To improve ability to perform tasks related to life management, To improve tolerance to ADL's Therapeutic Exercise to Include: Strength training, Power training, Postural training, Flexibilty training, Gait and locomotor training, In an aquatic setting, Passive ROM, Active ROM, Dynamic Lumbar Stabilization For the Purpose of:: To decrease pain, To decrease swelling/inflammation, To increase ROM, To improve nutrient delivery to tissue, To increase oxygenation perfusion, To improve muscle performance and motor function, To improve gait and locomotor functions, To improve health of tissue, To decrease soft tissue restriction, To increase flexibility/ROM Thank you for the opportunity to evaluate your patient. For Medicare and Medicare HMO plans, please review the plan of care and approve it. It will need to be FAXED BACK to us at [phone] for Medicare purposes. For Medicare only, by signing this I certify the plan of care. Please let me know if there are questions or concerns regarding this plan of care. Physician Signature: Date:
--- NOTE | 2018-12-30 14:00 | HP.PTDCSUM ---
HP - PT D/C Summary It has been my pleasure to treat FAUSTO YBARRA under orders from Musa Cintron III, MD, for the diagnosis of Lumbar radiculopathy with radiation down L LE for a total of 10 visit(s). Discharge Date: 12/29/18 Please see the following information for a summary of their discharge status. - Subjective Subjective: Pt. reports increased pain overall of her neck, B elbows, bilateral knees, L posterior thigh, L distal calf. Pt. reports mild changes with aquatic therapy. Pt. reports - Pain L thigh Pain Intensity (Out of 10): 6 L knee Pain Intensity (Out of 10): 6 Lumbar spine Pain Intensity (Out of 10): 6 B feet Pain Intensity (Out of 10): 6 R wrist Pain Intensity (Out of 10): 6 cervical spine Pain Intensity (Out of 10): 6 - Overall Improvement % Improvement: 25 - Objective Objective/Function: cervical spine ROM- min loss in all directions with increased symptoms, except mod loss with ext no pain. LUMABR SPINE: flexion min loss increase NW, ext mod loss increase NW, SB min loss bilat increase nW, rotation min loss bilat increase NW. Core strength- poor+. BLE 4/5 throughout. GAIT: Pt. has decreased step length bilaterally. Pt. has general decreased tempo and guarded posture. Pt. reports increased pain systemically with gait. STAIRS: Pt. is able to negotiate with step to pattern with use of BHR, but has increased pain with all motions - Goals Goal 1:: Pt. to be I with HEP. Goal Progress: Goal Met Goal 2:: Pt. to have increased BLE and core strength by 1/2 grade of all effected musculature. Goal Progress: Progressing Goal 3:: Pt. to ambulate greater than 1 mile with 0-2/10 pain in lumbar spine and LLE allowing for increased healthy lifestyle. Goal Progress: Not Progressing Goal 4:: Pt. to sleep throughout the night without increase in symptoms allowing for increaed quality of life. Goal Progress: Not Progressing Goal 5:: Pt. to have decreased radiating symptoms by 25% in LLE. Goal Progress: Not Progressing - Plan Plan: Pt. to be DC back to physician. - D/C Information Discharge Comments: Pt. was seen for her low back pain with radiculopathy in aquatic setting. Pt. had minimal improvement with postural and core strengthening. Pt. reports having pain in multiple joints including: neck, bilateral elbows, B hips, B knees and B ankles and low back pain. Pt. is concerned about her multiple joint pain. She had minimal reduction in symptoms with graded exercises in aquatic setting. She might benefit from systemic work up to rule out more sinister pathology due to multiple joint pains. If there are questions or concerns regarding this patient's physical therapy, please feel free to call me at [phone]. Thank you for the referral of this patient. Sincerely, Freeman Faria DPT
== END 2018-12-29 19:00 | disposition home or self-care (01) ==
LOC: PT 12:30
PROVIDERS: Family Provider Family Medicine; PCP Family Medicine; Referring Provider Family Medicine; Visit Provider Family Medicine
DX: M51.16 Intervertebral disc disorders with radiculopathy, lumbar region (principal)
CPT/HCPCS: 97113; 97161; 97530

== ENCOUNTER → 2018-12-30 07:04 | Outpatient (CLI) | payer OTHER, MEDICARE, SELFPAY ==
[2018-12-30 07:13] LABS: Mucous, Urine 0 SEEN /hpf (<or=2+); Red Blood Cells-Urine 0 SEEN /hpf (0-5); Squamous Epithelial Cells - UA 0 SEEN /hpf (5-10)
[2018-12-30 07:34] LABS: Color, Urine Yellow (Yellow); Glucose, Dipstick Normal (Normal); Ketone-Dipstick Negative (Negative); Leukocyte Esterase-Dipstick 500 /ul (Negative); Nitrite-Dipstick Negative (Negative); Occult Blood-Urine Negative /ul (Negative); Protein-Dipstick 15 mg/dl (Negative); Urine Bilirubin Dipstick Negative (Negative); Urine Clarity Sl. Cloudy (Clear); Urine Urobilinogen Normal (Normal)
[2018-12-30 07:38] LABS: Hematocrit 37.5 % (37-47); Hemoglobin 12.1 g/dl (12.0-15.0); Mean Corp Hgb Conc 32.3 g/gl (32-36); Mean Corpuscular Hgb 27.3 pg (27.0-32.0); Mean Corpuscular Volume 84.7 fL (81-99); Mean Platelet Vol. 8.4 fl (6.2-12.0); Platelet Count 252 K/mm3 (150-450); RBC Distribution Width CV 15.2 % (11.6-14.6); RBC Distribution Width SD 47.2 fl (35.1-43.9); Red Blood Count 4.43 M/mm3 (4.2-5.4)
[2018-12-30 07:40] LABS: Erythrocyte Sedimentation Rate 26 mm/hr (0-30)
[2018-12-30 07:41] LABS: Bacteria RARE /hpf (None Seen); White Blood Cells 5-10 SEEN /hpf (0-5)
[2018-12-30 07:42] LABS: ALB/GLOB Ratio 0.8 RATIO (0.9-2.4); AST(SGOT) 15 U/L (15-37); Alanine Aminotransfer ALT/SGPT 22 U/L (13-56); Albumin, Serum 3.4 g/dL (3.2-5.0); Alkaline Phosphatase 74 U/L (45-117); Anion Gap 6 (5-15); BUN 24 mg/dL (7-18); BUN/Creat Ratio 35.3 RATIO (10-20); Bilirubin, Direct 0.09 mg/dL (0.00-0.30); Calcium,Total 8.6 mg/dL (8.5-10.1); Chloride 107 mmol/L (98-107); Cholesterol 218 mg/dL (200); Creatinine, Serum 0.68 mg/dL (0.55-1.02); EST Glomerular Filtration Rate 90 mL/min (>60); Est Glom Filt Rate - Afr Amer 109 mL/min (>60); Globulin 4.3 g/dL (2.2-4.2); Glucose 98 mg/dL (74-106); High Density Lipoprotein 63 mg/dL; Potassium 3.8 mmol/L (3.5-5.1); Protein, Total 7.7 g/dL (6.4-8.2); Sodium Level 142 mmol/L (136-145); Triglycerides 112 mg/dL; Very Low Density Lipoprotein 22 mg/dL (5-40)
[2018-12-30 07:47] LABS: Scan Indicated on CBC? Y/N NO
[2018-12-30 10:14] LABS: Hemoglobin A1c 6.7 % (4.2-6.3)
== END ==
PROVIDERS: Family Provider Family Medicine; PCP Family Medicine; Referring Provider Physician Assistant Medical; Visit Provider Physician Assistant Medical
DX: E11.9 Type 2 diabetes mellitus without complications (principal); M54.16 Radiculopathy, lumbar region; R35.0 Frequency of micturition
CPT/HCPCS: 36415; 80053; 80061; 81001; 82248; 83036; 85027; 85652

== ENCOUNTER 2019-02-17 03:23 | Emergency (ER) | payer OTHER, MEDICARE, SELFPAY ==
[2019-01-07 11:54] VITALS: BMI 34.7
[2019-02-17 03:24] VITALS: BP 197/70; PULSE 50; RESP 22; TEMP 36.4; O2SAT 99; BMI 35.3
[2019-02-17 03:39] LABS: Absolute Lymphocyte Count 2.27 X10^3/ul (0.83-4.51); Absolute Neutrophil Count 2.6 X10^3/uL (2.0-7.7); Basophil# 0.02 X10^3/uL; Basophil% 0.4 % (0-1); Eosinophils% 5.3 % (0-5); Hematocrit 37.6 % (37-47); Hemoglobin 12.4 g/dl (12.0-15.0); Lymphocyte # 2.27 X10^3/ul (4.0); Lymphocyte % 39.8 % (19-41); Mean Corpuscular Hgb 27.7 pg (27.0-32.0); Mean Corpuscular Volume 83.9 fL (81-99); Mean Platelet Vol. 8.7 fl (6.2-12.0); Monocyte# 0.56 X10^3/uL; Monocyte% 9.8 % (0-10); Neutrophil # 2.56 X10^3/uL (2.7-7.7); Neutrophil % 44.7 % (47-70); Platelet Count 285 K/mm3 (150-450); RBC Distribution Width CV 14.9 % (11.6-14.6); RBC Distribution Width SD 44.7 fl (35.1-43.9); Red Blood Count 4.48 M/mm3 (4.2-5.4); White Blood Count 5.7 K/mm3 (4.4-11.0)
[2019-02-17 03:40] LABS: POSITIVE COUNT NO; POSITIVE DIFFERENTIAL NO; POSITIVE MORPHOLOGY NO
[2019-02-17 03:51] LABS: Anion Gap 7 (5-15); BUN 26 mg/dL (7-18); BUN/Creat Ratio 32.1 RATIO (10-20); Calcium,Total 8.8 mg/dL (8.5-10.1); Chloride 107 mmol/L (98-107); Creatinine, Serum 0.81 mg/dL (0.55-1.02); EST Glomerular Filtration Rate 74 mL/min (>60); Est Glom Filt Rate - Afr Amer 89 mL/min (>60); Estimated Creatinine Clearance 48.19 ml/min; Glucose 121 mg/dL (74-106); Sodium Level 143 mmol/L (136-145)
--- NOTE | 2019-02-17 04:15 | CT_ITS ---
STUDY: CT ABDOMEN AND PELVIS WITHOUT CONTRAST REASON FOR EXAM: Female, 73 years old. SEVERE RIGHT FLANK PAIN WITH FREQUENT URINATION, HX MMI, HTN, GB, SLEEVE PROCEDURE, DIAB-DIET CONTROLLED RADIATION DOSAGE (If Supplied By Facility): CTDIvol = ( 16.13 ) mGy, DLP = ( 733.40 ) mGycm TECHNIQUE: Transaxial images were obtained from the dome of the diaphragm to the symphysis pubis without oral contrast, and without intravenous contrast. Sagittal and coronal images were reconstructed. Individualized dose optimization techniques were used for this CT. COMPARISON: None. FINDINGS: The visualized lung bases are unremarkable. The visualized portions of the heart are within normal limits. Normal liver. There are surgical clips in the gallbladder fossa consistent with a prior cholecystectomy. Normal spleen. Normal pancreas. Normal bilateral adrenal glands. Normal right kidney. Normal left kidney. There is a small hiatal hernia. Normal small intestine. There are multiple colonic diverticula consistent with diverticulosis. There is non-visualization of the appendix. There is diffuse atherosclerotic calcification of the abdominal aorta, without a demonstrated aneurysm. Normal inferior vena cava. Normal retroperitoneum. Normal urinary bladder. Normal abdominal wall. There are diffuse degenerative changes of the visualized lumbar spine. CT/Abdomen/Pelvis without Cont IMPRESSION: Colon diverticulosis. Small hiatal hernia. Electronically Signed: Jorge Bee, at 5:15 EDT Tel , Service support ,
[2019-02-17 04:16] LABS: Bacteria 0 SEEN /hpf (None Seen); Mucous, Urine 0 SEEN /hpf (<or=2+); Red Blood Cells-Urine 0 SEEN /hpf (0-5); White Blood Cells 0 SEEN /hpf (0-5)
[2019-02-17] MEDS: Ondansetron 4 MG/2 ML Vial IV (04:19)
[2019-02-17] MEDS: Morphine 2 MG/ML Syringe IV (04:19)
[2019-02-17 04:26] LABS: Color, Urine Yellow (Yellow); Glucose, Dipstick Normal (Normal); Ketone-Dipstick Negative (Negative); Leukocyte Esterase-Dipstick 25 /ul (Negative); Nitrite-Dipstick Negative (Negative); Occult Blood-Urine Negative /ul (Negative); Protein-Dipstick Negative (Negative); Specific Gravity, Urine 1.015 (1.002-1.030); Urine Bilirubin Dipstick Negative (Negative); Urine Clarity Clear (Clear); Urine Urobilinogen Normal (Normal)
[2019-02-17 04:34] LABS: Squamous Epithelial Cells - UA 0-5 SEEN /hpf (5-10)
--- NOTE | 2019-02-17 05:30 | ED.VISSUMM ---
- ER Visit Summary Date of Service: 02/17/19 Chief Complaint: Right flank pain History of Present Illness: The patient is a 73 F who presents the emergency department with a 1 day duration of right flank pain. Described as sharp and stabbing and occurring in the right upper quadrant radiating to the right flank. She states is worse with movement. She is never had anything like this before. The first she thought it was muscular in nature but states she is never had it hurt so bad. She does note some dysuria but states that is chronic for her. She also notes some urinary frequency that is not. Patient denies any rash in the area. Physical Examination: Afebrile vital signs are stable Gen: Well-nourished well-developed Head: Normocephalic atraumatic Eyes: Perrl EOMI ENT: TMs clear no rhinorrhea moist mucous membranes Neck: Supple no lymphadenopathy no JVD nontender CVS: Regular rate rhythm no murmurs normal S1-S2 Respiratory: No distress clear to auscultation bilaterally chest nontender Abdomen: Soft nontender nondistended normal bowel sounds no masses Back: Patient points to the area that hurts. I palpate 6 inches above it lightly in the soft tissue and she whales and flings herself back onto the bed. She tells me that that caused it to hurt down below. Same thing occurs in the mid axillary line and in the right upper quadrant. Extremity: Nontender no edema Skin: Normal color no rash Neuro: alert orientated ?3 CN II-XII intact normal strength sensation Psych: Normal affect normal mood Test Results: CBC BMP and urine specimens were normal. CT noncontrasted of the abdomen and pelvis (flank CT) was also negative. Emergency Department Course and Treatment: Patient is adamant that she not take any pain medications. Then she tells me that we can give her something here but she will not take it at home. I gave her 2 mg of morphine and she is more comfortable. I think this is musculoskeletal in nature I think this because there is no other evidence to explain other. Patient was advised that her symptoms may change and a new diagnosis may be more likely. She is to let us or her family doctor know if there are new symptoms. Impression: 1. Right flank pain This note was generated with [employer] software. It may contain incorrect words, spelling, and punctuation that were not noted in review of the chart prior to signing ED Disposition - Plan for ED Patient: Disposition: Home or Assisted Living Instructions: FLANK PAIN, Uncertain Cause Prescriptions: Diazepam [Valium] 2 mg PO TID PRN PRN #10 tab PRN Reason: muscle spasm Prescription Printed Referrals: Musa Cintron III, MD [Primary Care Provider] - (in 2-3 days if not improving)
[2019-02-17 06:04] VITALS: BP 142/67; PULSE 51; RESP 17; O2SAT 99
== END 2019-02-17 06:09 | disposition home or self-care (01) ==
PROVIDERS: Emergency Provider Emergency Medicine; Family Provider Family Medicine; PCP Family Medicine
DX: R10.9 Unspecified abdominal pain (principal); M54.2 Cervicalgia; M54.9 Dorsalgia, unspecified; R30.0 Dysuria; R35.0 Frequency of micturition; E11.9 Type 2 diabetes mellitus without complications; I10 Essential (primary) hypertension; E78.00 Pure hypercholesterolemia, unspecified; Z95.1 Presence of aortocoronary bypass graft; Z86.73 Personal history of transient ischemic attack (TIA), and cerebral infarction without residual deficits; Z98.84 Bariatric surgery status; M35.00 Sjogren syndrome, unspecified
CPT/HCPCS: 74176; 80048; 81001; 85025; 99283; A4216; J2405

== ENCOUNTER → 2019-02-20 12:24 | Outpatient (CLI) | payer OTHER, MEDICARE, SELFPAY ==
[2019-02-17 03:24] VITALS: BMI 35.3
--- NOTE | 2019-02-20 12:27 | RAD_ITS ---
STUDY: X-RAY - CERVICAL SPINE REASON FOR EXAM: Female, 73 years old. Popping and pain in neck for several years. TECHNIQUE: 5 view(s) of the cervical spine were obtained. COMPARISON: None FINDINGS: There are degenerative changes of the anterior atlantoaxial articulation. Normal odontoid process. There is straightening of the normal cervical lordosis. There is multi-level lower cervical hypertrophic anterior endplate spondylosis. There is multi-level degenerative disc disease with C5-C7 disc space narrowing. There are multilevel degenerative arthroses of the bilateral facet articulations. Moderately severe osseous impingement seen at the bilateral C5-6 intervertebral neural foramina The prevertebral soft tissue structures are unremarkable. There is no demonstrated osseous destructive process or acute fracture of the cervical spine. RAD/Cerv Spine 4 or 5 Views IMPRESSION: Multilevel degenerative changes of the cervical spine, as described. Electronically Signed: Giovani Hughes MD at 20:01 EDT , Service support ,
--- NOTE | 2019-02-20 12:27 | RAD_ITS ---
STUDY: X-RAY - LUMBAR SPINE REASON FOR EXAM: Female, 73 years old. Pain and numbness for several years. TECHNIQUE: 5 view(s) of the lumbar spine were obtained. COMPARISON: CT abdomen and pelvis November 16, 2018 FINDINGS: Normal lumbar lordosis. There is minimal 6-7 degree levoscoliosis of the lumbar spine centered near L4. Stable grade 1 spondylolisthesis of L4 on L5. There is multilevel endplate spondylosis of the lumbar vertebrae. Degenerative sclerosis of the opposing L4-5 vertebral endplates again noted. There is multi-level degenerative disc disease with stable multi-level disc space narrowing. Vacuum phenomena again seen at the L3-4 and L4-5 intervertebral disc levels. There is no demonstrated fracture. There are degenerative arthroses with narrowing in the mid to lower lumbar facet joints, as well as mild degenerative arthrosis of the inferior right sacroiliac joint. Degenerative narrowing and sclerosis also incidentally noted at the pubic symphysis. There is atherosclerotic calcification of the abdominal aorta without a demonstrated aneurysm. RAD/L/S Spine Min 4 Views IMPRESSION: Degenerative changes of the spine, as detailed above, unchanged from November 16, 2018. Electronically Signed: Giovani Hughes MD at 20:04 EDT , Service support ,
== END ==
PROVIDERS: Family Provider Family Medicine; PCP Family Medicine; Referring Provider Family Medicine; Visit Provider Family Medicine
DX: M46.92 Unspecified inflammatory spondylopathy, cervical region (principal); M46.96 Unspecified inflammatory spondylopathy, lumbar region
CPT/HCPCS: 72050; 72110

== ENCOUNTER → 2019-03-27 08:04 | Outpatient (CLI) | payer OTHER, MEDICARE, SELFPAY | PROVIDERS: Family Provider Family Medicine; PCP Family Medicine; Referring Provider Family Medicine; Visit Provider Family Medicine | DX: N39.0 Urinary tract infection, site not specified (principal) | CPT/HCPCS: 87086 ==

== ENCOUNTER 2019-04-27 09:30 | Emergency (ER) | payer OTHER, MEDICARE, SELFPAY ==
[2019-04-27 09:30] VITALS: BP 152/86; PULSE 66; RESP 16; O2SAT 99
[2019-04-27 09:32] VITALS: BP 160/75; PULSE 89; RESP 18; TEMP 36.5; O2SAT 99; BMI 34.4
--- NOTE | 2019-04-27 09:45 | CT_ITS ---
STUDY: CT ABDOMEN AND PELVIS WITHOUT CONTRAST REASON FOR EXAM: Female, 73 years old. 4 day history of left lower quadrant pain. History of diverticulitis. RADIATION DOSAGE (If Supplied By Facility): CTDIvol = ( 16.79 ) mGy, DLP = ( 792.64 ) mGycm TECHNIQUE: Transaxial images were obtained from the dome of the diaphragm to the symphysis pubis without oral contrast, and without intravenous contrast. Sagittal and coronal images were reconstructed. Individualized dose optimization techniques were used for this CT. COMPARISON: Comparison is made with prior study dated February 17, 2019. FINDINGS: Stable mild degree of scarring at the lung bases. Calcified granuloma in the left lower lobe. Coronary artery calcification. Prior CABG. Normal liver. The patient is status post cholecystectomy. There is a benign calcified granuloma of the spleen. Normal pancreas. Normal bilateral adrenal glands. Normal right kidney. Normal left kidney. Moderate sized hiatal hernia. Partial subtotal gastrectomy. Normal small intestine. There is evidence of a colonic diverticulosis. There are surgical clips in the region of the appendix consistent with a prior appendectomy. There is diffuse atherosclerotic calcification of the abdominal aorta, without a demonstrated aneurysm. Normal inferior vena cava. Normal retroperitoneum. Normal urinary bladder. There is absence of the uterus consistent with a prior hysterectomy. Normal abdominal wall. There are diffuse degenerative changes of the visualized lumbar spine. Minimal grade 1 anterior listhesis of L4 on L5. CT/Abdomen/Pelvis without Cont IMPRESSION: Diffuse colonic diverticulosis. Moderate sized hiatal hernia and prior subtotal gastrectomy. Electronically Signed: Pelon Cintron, at 10:54 EDT , Service support ,
--- NOTE | 2019-04-27 09:50 | ED.DCSUM_ITS ---
- ER Visit Summary Date of Service: 04/27/19 Chief Complaint: Abdominal pain History of Present Illness: The patient is a 73 F who presents the emergency department 4 days of left lower quadrant abdominal pain. She tells me that she has a history of diverticulitis and this feels similar. She states that she has pain with walking and driving. She denies any change in bowel habits or any bleeding. She denies any change in urinary symptoms. She denies any fevers but notes that she is always chilled. No radiation of the pain. Physical Examination: Afebrile vital signs are stable Gen: Well-nourished well-developed Head: Normocephalic atraumatic Eyes: Perrl EOMI ENT: TMs clear no rhinorrhea moist mucous membranes Neck: Supple no lymphadenopathy no JVD nontender CVS: Regular rate rhythm no murmurs systolic murmur consistent with aortic stenosis Respiratory: No distress clear to auscultation bilaterally chest nontender Abdomen: Soft tender to palpation left lower quadrant out of proportion to examination nondistended normal bowel sounds no masses Back: Nontender Extremity: Nontender no edema Skin: Normal color no rash Neuro: alert orientated ?3 CN II-XII intact normal strength sensation Psych: Normal affect normal mood Test Results: CT I believe demonstrates a small section of diverticulitis the sigmoid region. This would correlate with the area of her pain. White count is normal. No perforation or abscess. Emergency Department Course and Treatment: She was started on Augmentin as she has a Cipro allergy (tinnitus). Impression: 1. Acute diverticulitis This note was generated with [employer] dictation software. It may contain incorrect words, spelling, and punctuation that were not noted in review of the chart prior to signing ED Disposition - Plan for ED Patient: Disposition: Home or Assisted Living Instructions: Diverticulitis Prescriptions: Amox/Clavulanate Tablet [Augmentin Tablet] 875 mg PO Q12H #20 tab Transmission Status: Pending to [facility] Referrals: Musa Cintron III, MD [Primary Care Provider] - 3-5 Days if not improving
[2019-04-27 10:19] LABS: Absolute Lymphocyte Count 1.59 X10^3/uL (0.83-4.51); Absolute Neutrophil Count 5.5 X10^3/uL (2.0-7.7); Basophil# 0.03 X10^3/uL; Basophil% 0.4 % (0-1); Eosinophil# 0.22 X10^3/uL; Eosinophils% 2.8 % (0-5); Hematocrit 39.2 % (37-47); Hemoglobin 12.6 g/dL (12.0-15.0); Lymphocyte # 1.59 X10^3/ul (4.0); Lymphocyte % 19.9 % (19-41); Mean Corp Hgb Conc 32.1 g/dL (32-36); Mean Corpuscular Volume 87.1 fL (81-99); Monocyte# 0.59 X10^3/uL; Monocyte% 7.4 % (0-10); NRBC Flagged by Analyzer 0 % (0-5); Neutrophil # 5.53 X10^3/uL (2.7-7.7); Neutrophil % 69.2 % (47-70); Platelet Count 276 K/mm3 (150-450); RBC Distribution Width CV 13.8 % (11.6-14.6); RBC Distribution Width SD 43.8 fl (35.1-43.9)
[2019-04-27 10:31] LABS: Anion Gap 6 (5-15); BUN 17 mg/dL (7-18); BUN/Creat Ratio 21.7 RATIO (10-20); Calcium,Total 9.2 mg/dL (8.5-10.1); Chloride 107 mmol/L (98-107); Creatinine, Serum 0.78 mg/dL (0.55-1.02); EST Glomerular Filtration Rate 76 mL/min (>60); Est Glom Filt Rate - Afr Amer 92 mL/min (>60); Estimated Creatinine Clearance 39.04 ml/min; Glucose 115 mg/dL (74-106); Potassium 3.4 mmol/L (3.5-5.1); Sodium Level 140 mmol/L (136-145)
[2019-04-27 11:06] VITALS: BP 95/84; PULSE 79; RESP 18; O2SAT 98
[2019-04-27 12:14] VITALS: BP 95/84; PULSE 57; RESP 16; O2SAT 99
== END 2019-04-27 12:15 | disposition home or self-care (01) ==
PROVIDERS: Emergency Provider Emergency Medicine; Family Provider Family Medicine; PCP Family Medicine
DX: K57.32 Diverticulitis of large intestine without perforation or abscess without bleeding (principal); K44.9 Diaphragmatic hernia without obstruction or gangrene; Z90.3 Acquired absence of stomach [part of]; E11.9 Type 2 diabetes mellitus without complications; I10 Essential (primary) hypertension; I48.91 Unspecified atrial fibrillation; E78.00 Pure hypercholesterolemia, unspecified; Z95.1 Presence of aortocoronary bypass graft; Z86.73 Personal history of transient ischemic attack (TIA), and cerebral infarction without residual deficits
CPT/HCPCS: 74176; 80048; 85025; 99283; A4216

== ENCOUNTER 2019-05-16 02:33 | Emergency (ER) | payer OTHER, MEDICARE, SELFPAY ==
[2019-05-16 02:34] VITALS: BP 118/61; PULSE 76; RESP 20; TEMP 37; O2SAT 94; BMI 35.2
--- NOTE | 2019-05-16 02:52 | CT_ITS ---
STUDY: CT ABDOMEN AND PELVIS WITHOUT CONTRAST REASON FOR EXAM: Female, 73 years old. Abdominal pain RADIATION DOSAGE (If Supplied By Facility): CTDIvol = ( 23.92 ) mGy, DLP = ( 1098.53 ) mGycm TECHNIQUE: Transaxial images were obtained from the dome of the diaphragm to the symphysis pubis without oral contrast, and without intravenous contrast. Sagittal and coronal images were reconstructed. Individualized dose optimization techniques were used for this CT. COMPARISON: CT abdomen and pelvis from 04/27/2019 FINDINGS: The visualized lung bases demonstrate stable scarring at the lung bases with calcified granuloma in the left lung base. The visualized portions of the heart demonstrate scattered coronary artery calcifications. The patient is status post median sternotomy. Normal liver. Status post cholecystectomy. There are several small calcified splenic granulomas. Normal pancreas. Normal bilateral adrenal glands. Normal right kidney. Normal left kidney. There is partial gastrectomy. There is a moderate-sized hiatal hernia. Normal small intestine. There is scattered colonic diverticulosis with pericolonic fat stranding involving the descending colon. No focal fluid collections. There is moderate retained stool throughout the colon. The appendix is nonvisualized consistent with appendectomy. There is diffuse atherosclerotic calcification of the abdominal aorta, without a demonstrated aneurysm. Normal inferior vena cava. Normal retroperitoneum. Normal urinary bladder. Status post hysterectomy. Normal abdominal wall. There are diffuse degenerative changes of the visualized lumbar spine. CT/Abdomen/Pelvis without Cont IMPRESSION: Diverticulosis with uncomplicated diverticulitis involving the descending colon. Additional Chronic stable findings as above. Electronically Signed: Eduardo Kemp, at 4:19 EDT Tel , Service support ,
--- NOTE | 2019-05-16 02:53 | ED.VIS.GEN ---
History of Present Illness Chief Complaint: Abd Pain Detail of Chief Complaint: Left-sided abdominal pain Informant: Patient Onset: Days Current Severity: Moderate Maximum Severity: Moderate Narrative: Patient presents with recurrent left-sided abdominal pain. She had lower left lower quadrant pain few weeks ago and had a small area of diverticulitis treated with Augmentin. Patient states that improved. Over the last several days she has had moderate pain to the entire left lower quadrant. She has been urinating frequently but denies dysuria. She denies back pain. No fever or chills. - Past Medical History (1) Diverticulitis Status: Acute (2) Atherosclerotic heart disease of [place] coronary artery without angina pectoris Status: Chronic Comment: CABG X 3, HUSTON to LAD, SVG to OM & SVG to anterior marginal 11/25/15 PTCA with stent of proximal AV CX @ [facility] 07/20/03 (3) Essential hypertension Status: Chronic (4) H/O right coronary artery stent placement Status: Chronic Comment: PTCA with stent of proximal AV CX @ [facility] 07/20/03 (5) Hyperlipidemia Status: Chronic (6) Nonrheumatic aortic (valve) stenosis Status: Chronic (7) Paroxysmal atrial fibrillation Status: Chronic (8) H/O coronary artery bypass surgery Status: Resolved Comment: CABG X 3, HUSTON to LAD, SVG to OM & SVG to anterior marginal 11/25/15 Past Medical History - Allergies and Home Meds Allergies/Adverse Reactions: Allergies ciprofloxacin Allergy (Verified 05/16/19 02:34) Other Iodinated Contrast Media [Iodinated Contrast Media - IV Dye] Allergy (Verified 05/16/19 02:34) Other SNEEZING AND THROAT ITCHING meperidine HCl [From Demerol] Adverse Reaction (Verified 05/16/19 02:34) Vomiting promethazine [From Phenergan] Adverse Reaction (Verified 05/16/19 02:34) anxiety,restlessness rosuvastatin calcium [From Crestor] Adverse Reaction (Verified 05/16/19 02:34) Pain in joints Primary Care Physician: Musa Cintron III, MD [Primary Care Provider] - Prior records reviewed: Yes Past Medical History: - - Reviewed Surgical History: - - Patient also reports history of sleeve procedure with significant weight loss. She is presently on no meds. Smoking Status: Never smoker Review of Systems General: Denies: Chills, Fever Eyes: Denies: Visual changes - bilaterally ENT: Denies: Bilateral ear pain Cardiovascular: Denies: Chest pain Respiratory: Denies: Dyspnea, Cough Gastrointestinal: Reports: Abdominal pain. Denies: Nausea, Vomiting, Diarrhea Genitourinary: Denies: Dysuria Musculoskeletal: Denies: Neck pain, Back pain Skin: Denies: Rash Neurological: Denies: Headache Hematologic: Denies: Easy bruising Allergy: Denies: Uticaria Physical Exam Vital Signs/Narrative: Vital Signs Temp Pulse Resp BP Pulse Ox 05/16/19 02:34 98.6 F 76 20 H 118/61 94 Inital Vital Signs reviewed: Yes General: Well nourished, Well developed Head: Normocephalic ENT: Moist mucous membranes Neck: Supple Cardiovascular: Regular rate, Regular rhythm Respiratory: No distress, CTA bilaterally Abdomen: Soft, Tender - Moderate tenderness to the left lower quadrant., Hypoactive bowel sounds. Negative for: Guarding, Rebound tenderness Back: Nontender Extremities: Nontender Skin: Normal color, No rash Neurological: Alert, Oriented x3 Psychological: Normal affect Diagnostic/Tx/Re-eval Impressions Abdomen/Pelvis CT 05/16/19 02:52 IMPRESSION: Diverticulosis with uncomplicated diverticulitis involving the descending colon. Additional Chronic stable findings as above. Electronically Signed: Antoniothierno Justo, at 4:19 EDT Tel , Service support , 05/16/19 02:52 Abdomen/Pelvis without Cont [CT] Stat Laboratory Results 05/16/19 05/16/19 05/16/19 02:46 02:46 02:54 WBC 7.4 RBC 4.21 Hgb 11.5 L Hct 36.4 L MCV 86.5 MCH 27.3 MCHC 31.6 L RDW Std Deviation 43.8 RDW Coeff of Nabeel 13.8 Plt Count 243 MPV 8.9 Immature Gran % (Auto) 0.400 Neut % (Auto) 70.7 H Lymph % (Auto) 17.4 L [place] % (Auto) 9.4 Eos % (Auto) 1.8 Baso % (Auto) 0.3 Absolute Neuts (auto) 5.2 Absolute Lymphs (auto) 1.29 Nucleated RBC % 0 Sodium 139 Potassium 3.6 Chloride 106 Carbon Dioxide 27.0 Anion Gap 6 BUN 18 Creatinine 0.75 Estim Creat Clear Calc 39.04 Est GFR (MDRD) Af Amer 97 Est GFR (MDRD) Non-Af 80 BUN/Creatinine Ratio 24.0 H Glucose 126 H Calcium 8.7 Urine Color Yellow Urine Clarity Sl. Cloudy Urine pH 6.0 Ur Specific [place] 1.015 Urine Protein 15 H Urine Glucose (UA) Normal Urine Ketones Negative Urine Occult Blood Negative Urine Nitrite Negative Urine Bilirubin Negative Urine Urobilinogen Normal Ur Leukocyte Esterase 25 H Urine RBC 0 SEEN Urine WBC 0-5 SEEN Ur Squamous Epith Cells 0-5 SEEN Urine Bacteria RARE Urine Mucus 0 SEEN - Medical Decision Making Patient was given morphine, Zofran, and IV fluids. CT was obtained without contrast that she does have an IV contrast allergy. CT returns with evidence of simple diverticulitis. Due to allergy of Cipro she will be given a course of Augmentin. She declined anything for pain at home. She will follow-up with Dr. Manny Cintron. Diagnosis: Diverticulitis ED Disposition - Plan for ED Patient: Disposition: Home or Assisted Living Diagnosis: Diverticulitis Instructions: Diverticulitis Prescriptions: Amox/Clavulanate Tablet [Augmentin Tablet] 875 mg PO Q12H #20 tablet Referrals: Musa Cintron III, MD [Primary Care Provider] - Manny Cintron MD [STAFF PHYSICIAN] -
[2019-05-16 02:59] LABS: Absolute Lymphocyte Count 1.29 X10^3/uL (0.83-4.51); Absolute Neutrophil Count 5.2 X10^3/uL (2.0-7.7); Basophil# 0.02 X10^3/uL; Basophil% 0.3 % (0-1); Eosinophil# 0.13 X10^3/uL; Eosinophils% 1.8 % (0-5); Hematocrit 36.4 % (37-47); Hemoglobin 11.5 g/dL (12.0-15.0); Lymphocyte # 1.29 X10^3/ul (4.0); Lymphocyte % 17.4 % (19-41); Mean Corp Hgb Conc 31.6 g/dL (32-36); Mean Corpuscular Hgb 27.3 pg (27.0-32.0); Mean Corpuscular Volume 86.5 fL (81-99); Mean Platelet Vol. 8.9 fl (6.2-12.0); Monocyte% 9.4 % (0-10); NRBC Flagged by Analyzer 0 % (0-5); Neutrophil # 5.24 X10^3/uL (2.7-7.7); Neutrophil % 70.7 % (47-70); Platelet Count 243 K/mm3 (150-450); RBC Distribution Width CV 13.8 % (11.6-14.6); RBC Distribution Width SD 43.8 fl (35.1-43.9); Red Blood Count 4.21 M/mm3 (4.2-5.4); White Blood Count 7.4 K/mm3 (4.4-11.0)
[2019-05-16] MEDS: 0.9% Normal Saline 1,000 ML 150 ML IV (03:02)
[2019-05-16] MEDS: Ondansetron 4 MG/2 ML Vial IV (03:03)
[2019-05-16] MEDS: Morphine 4 MG/ML Syringe IV (03:03)
[2019-05-16 03:09] LABS: Anion Gap 6 (5-15); BUN 18 mg/dL (7-18); Calcium,Total 8.7 mg/dL (8.5-10.1); Chloride 106 mmol/L (98-107); Creatinine, Serum 0.75 mg/dL (0.55-1.02); EST Glomerular Filtration Rate 80 mL/min (>60); Est Glom Filt Rate - Afr Amer 97 mL/min (>60); Estimated Creatinine Clearance 39.04 ml/min; Glucose 126 mg/dL (74-106); Potassium 3.6 mmol/L (3.5-5.1); Sodium Level 139 mmol/L (136-145)
[2019-05-16 03:16] LABS: Mucous, Urine 0 SEEN /hpf (<or=2+); Red Blood Cells-Urine 0 SEEN /hpf (0-5)
[2019-05-16 03:18] LABS: Color, Urine Yellow (Yellow); Glucose, Dipstick Normal (Normal); Ketone-Dipstick Negative (Negative); Leukocyte Esterase-Dipstick 25 /ul (Negative); Nitrite-Dipstick Negative (Negative); Occult Blood-Urine Negative /ul (Negative); Protein-Dipstick 15 mg/dl (Negative); Specific Gravity, Urine 1.015 (1.002-1.030); Urine Bilirubin Dipstick Negative (Negative); Urine Clarity Sl. Cloudy (Clear); Urine Urobilinogen Normal (Normal)
[2019-05-16 03:26] LABS: Bacteria RARE /hpf (None Seen); Squamous Epithelial Cells - UA 0-5 SEEN /hpf (5-10); White Blood Cells 0-5 SEEN /hpf (0-5)
[2019-05-16] MEDS: Amox/Clavulanate 875 MG Tablet PO (04:54)
[2019-05-16 04:55] VITALS: BP 138/70; PULSE 67; RESP 18; O2SAT 95
== END 2019-05-16 04:56 | disposition home or self-care (01) ==
PROVIDERS: Emergency Provider Emergency Medicine; Family Provider Family Medicine; PCP Family Medicine
DX: K57.30 Diverticulosis of large intestine without perforation or abscess without bleeding (principal); E78.5 Hyperlipidemia, unspecified; I10 Essential (primary) hypertension; I25.10 Atherosclerotic heart disease of native coronary artery without angina pectoris; I48.0 Paroxysmal atrial fibrillation; Z88.5 Allergy status to narcotic agent; Z88.8 Allergy status to other drugs, medicaments and biological substances; Z95.1 Presence of aortocoronary bypass graft; Z95.5 Presence of coronary angioplasty implant and graft
CPT/HCPCS: 74176; 80048; 81001; 85025; 96361; 96374; 96375; 99284; A4216; J2405

== ENCOUNTER 2019-07-20 09:04 | Day surgery (SDC) | payer OTHER, MEDICARE, SELFPAY ==
[2019-07-08 13:41] VITALS: BMI 33.5
[2019-07-20 09:30] VITALS: BP 140/52; PULSE 55; RESP 16; TEMP 36.7; O2SAT 100; BMI 33.3
[2019-07-20] MEDS: Lactated Ringers 1,000 ML 100 ML IV (09:58)
[2019-07-20 10:00] LABS: Bedside Glucose 109 mg/dL (70-110)
[2019-07-20] MEDS: Bupivacaine 0.25% 30 ML Vial (10:52)
[2019-07-20] MEDS: MethylPREDNISolone Acetate 80 MG/ML Vial (10:53)
[2019-07-20] MEDS: 0.9% Normal Saline (Pres. free 10 ML Vial (10:53)
--- NOTE | 2019-07-20 10:59 | RAD_ITS ---
PROCEDURE: Caudal block. DATE OF EXAMINATION: July 20, 2019 INDICATION: Female, 73 years old. Chronic pain. FLUOROSCOPY TIME (if supplied): (8.9 seconds) minutes/seconds. 2 images were obtained. Intraoperative imaging provided for caudal block. RAD/Fluor Guidance for Spine Inj IMPRESSION: Intraoperative imaging provided for caudal block. Electronically Signed: Pelon Cintron, at 15:40 EST , Service support ,
[2019-07-20 11:10] VITALS: BP 140/52; BP 156/81; PULSE 81; RESP 16; TEMP 36.8; O2SAT 97
[2019-07-20 11:15] VITALS: BP 140/52; BP 144/107; PULSE 79; RESP 16; O2SAT 99
[2019-07-20 11:20] VITALS: BP 140/52; BP 173/76; PULSE 70; RESP 16; O2SAT 98
[2019-07-20 11:25] VITALS: BP 140/52; BP 176/85; PULSE 64; RESP 16; TEMP 36.3; O2SAT 98
[2019-07-20 11:42] VITALS: BP 140/52
--- NOTE | 2019-07-20 11:43 | OP.PCM_ITS ---
Report of Operation Date of Procedure: 07/20/19 Description of Surgical Findings:: PREOPERATIVE DIAGNOSIS: Lumbosacral radiculopathy, lumbosacral degenerative disc disease, lumbosacral spinal stenosis POSTOPERATIVE DIAGNOSIS: Lumbosacral radiculopathy, lumbosacral degenerative disc disease, lumbosacral spinal stenosis PROCEDURE PERFORMED: Diagnostic/therapeutic caudal epidural steroid injection. ANESTHESIA: MAC. BLOOD LOSS: Minimal. COMPLICATIONS: None. DESCRIPTION OF PROCEDURE: History and physical of today was reviewed. Risks and benefits of the procedure were explained. The patient understood and agreed to proceed. Informed consent was obtained. IV inserted per routine protocol. The patient was taken to the operating room and placed in the prone position with a pillow positioned underneath the abdomen. The lower back and tailbone area was prepped and draped in a sterile fashion using iodine x3. Under fluoroscopy guidance on a lateral view, the caudal space was identified. The skin and subcutaneous tissue was anesthetized with approximately 3 mL of 1% lidocaine using a 25-gauge regular needle. Under direct visualization with fluoroscopy, using a 22-gauge 3-1/2-inch spinal needle, the needle was advanced via the skin through the sacral hiatus. The tip of the needle was passed through the sacrococcygeal ligament and advanced to approximately S4 area. After negative aspiration of blood or CSF, a total of 3 mL of contrast was injec jacky to confirm correct placement of the needle as well as cephalad spread. The spread was followed to approximately L5 area. After confirmation on AP as well as lateral view and repeated negative aspiration, a total of 15 mL of preservative-free 0.125% Marcaine with 80 mg of Depo-Medrol was injected easily. The needle was then removed intact. The patient experienced no sign or symptoms of intrathecal or intravascular injection. The patient experienced no paresthesia. The procedure was completed without any apparent difficulty or any complications. The patient appeared to tolerate it well. ASSESSMENT AND PLAN: This is a 73-year-old female with lumbosacral radiculopathy, lumbosacral degenerative disc disease, lumbosacral spinal stenosis status post diagnostic/therapeutic caudal epidural steroid injection patient will continue her current medications patient found approximately 2 weeks for reevaluation.
== END 2019-07-20 11:49 | disposition home or self-care (01) ==
LOC: SDC 09:06 → AC 09:07
PROVIDERS: Family Provider Family Medicine; PCP Family Medicine; Referring Provider Anesthesiology Pain Medicine; Visit Provider Anesthesiology Pain Medicine
PROC: 3E0S3BZ Introduction of Anesthetic Agent into Epidural Space, Percutaneous Approach (ICD-10-PCS; CPT 62282; principal; 2019-07-20 10:45)
DX: M51.17 Intervertebral disc disorders with radiculopathy, lumbosacral region (principal); M48.07 Spinal stenosis, lumbosacral region; G89.29 Other chronic pain; E11.9 Type 2 diabetes mellitus without complications; G47.33 Obstructive sleep apnea (adult) (pediatric); I25.2 Old myocardial infarction; I73.9 Peripheral vascular disease, unspecified; I10 Essential (primary) hypertension; I25.10 Atherosclerotic heart disease of native coronary artery without angina pectoris; Z95.1 Presence of aortocoronary bypass graft; M50.30 Other cervical disc degeneration, unspecified cervical region; M47.812 Spondylosis without myelopathy or radiculopathy, cervical region; M43.16 Spondylolisthesis, lumbar region; M46.96 Unspecified inflammatory spondylopathy, lumbar region; Z79.899 Other long term (current) drug therapy
CPT/HCPCS: 62323; 64483; 77003; 82962; J7120; J3490

== ENCOUNTER → 2019-08-05 09:18 | Outpatient (CLI) | payer OTHER, MEDICARE, SELFPAY ==
[2019-07-20 09:30] VITALS: BMI 33.3
[2019-07-31 13:41] VITALS: BMI 33.6
--- NOTE | 2019-08-05 09:37 | BI_ITS ---
MAMMOGRAPHY - BILATERAL DIAGNOSTIC REASON FOR EXAM: Female, 73 years old. Left breast thickening and tenderness. PERTINENT HISTORY: Non-contributory. TECHNIQUE: Digital bilateral breast milagros (3D mammographic acquisition) in the CC and MLO projections. 2-D mediolateral oblique (MLO) and craniocaudad (CC) views of both breasts were obtained. CAD: Full Field Digital Mammography with Computer Added Detection was performed. COMPARISON: Comparison is made with prior study of January 06, 2015 and March 20, 2012. FINDINGS: Breast Composition: There are scattered areas of fibroglandular density. There are no dominant masses or suspicious calcifications. Stable benign-appearing bilateral axillary lymph. No other significant abnormalities are identified. There has been no significant change since the prior study. BI/DIAG MAMM W/CAD, BILAT IMPRESSION: Stable bilateral diagnostic mammogram. With the patient''s history of left-sided breast tenderness, correlation with ultrasound is recommended. ASSESSMENT CATEGORY: BIRADS Category 0: Incomplete. Need additional imaging evaluation. A letter regarding these results will be sent to the patient by the facility within 30 days. Approximately 10% of breast cancers are not detected by mammography. A normal mammogram should not delay biopsy of a clinically suspicious abnormality. Electronically Signed: Pelon Cintron, at 11:02 EST , Service support ,
--- NOTE | 2019-08-05 09:39 | US_ITS ---
STUDY: ULTRASOUND BREAST - LEFT REASON FOR EXAM: Female, 73 years old. Left breast thickening and tenderness. TECHNIQUE: Axial and longitudinal images of the LEFT breast were performed with a high resolution ultrasound transducer. # OF IMAGES: 34 COMPARISON: Comparison is made with prior mammogram done earlier in the day. FINDINGS: LEFT Breast: The upper outer quadrant of the left breast was examined by ultrasound. There is homogeneous fibroglandular tissue. No sonographic abnormality is seen. US/Breast Limited Unilateral IMPRESSION: No sonographic abnormality is seen. ASSESSMENT CATEGORY: BIRADS Category 1: Negative. A letter regarding these results will be sent to the patient by the facility within 30 days. Electronically Signed: Pelon Cintron, at 10:38 EST , Service support ,
--- NOTE | 2019-08-05 10:00 | BD_ITS ---
STUDY: DUAL ENERGY X-RAY ABSORPTIOMETRY / DXA REASON FOR EXAM: Female, 73 years old. Early menopause. Loss of height. TECHNIQUE: Bone Mineral Density (BMD) measurements of lumbar spine and bilateral hips were obtained. COMPARISON: Comparison is made with prior study dated August 14, 2012. FINDINGS: Lumbar Spine (L1-L4): g/cm2 (1.553) / T-score (2.9) / Z-score (4.7) Findings are suggestive of normal bone density with a low fracture risk. Left Femur Total: g/cm2 (0.749) / T-score (-2.1) / Z-score (-0.3) Left Femoral Neck: g/cm2 (0.755) / T-score (-2.0) / Z-score (-0.1) Right Femur Total: g/cm2 (0.837) / T-score (-1.4) / Z-score (0.4) Right Femoral Neck: g/cm2 (0.765) / T-score (-2.0) / Z-score (-0.1) The T-Scores on the most recent prior examination were: Lumbar Spine (L1-L4): There has been no change of bone density since the previous examination. Left Femur Total: which represents a worsening of 11.8%. Right Femur Total: which represents a worsening of 9.1%. BD/Dexa Bone Density Study IMPRESSION: The patient is considered osteopenic as outlined below according to World [employer] Organization (WHO) criteria with a moderate fracture risk. There has been worsening of bone density since the previous examination. Reference Information: The T-score is the number of standard deviations above or below the standard which is normal for young adults at their peak bone mineral density. The World Health Organization (WHO) interprets the T-scores as follows: Above -1 Normal bone density Between -1 and -2.5 Osteopenia Equal to / or below -2.5 Osteoporosis As a practical clinical guideline, osteopenia may be graded as follows: Mild -1 through -1.5 Moderate -1.6 through -2.0 Severe -2.1 through -2.4 The Z-score is the number of standard deviations above or below age-matched controls. A Z-score of less than -1.5 would be considered abnormal. References: 1. NIH Osteoporosis and Related Bone Diseases http://www.osteo.org 2. International Society for Clinical Densitometry http://www.iscd.org 3. National Osteoporosis Foundation http://www.nof.org Electronically Signed: Pelon Cintron, at 15:45 EST , Service support ,
== END ==
PROVIDERS: Family Provider Family Medicine; PCP Family Medicine; Referring Provider Obstetrics & Gynecology; Visit Provider Obstetrics & Gynecology
DX: N64.4 Mastodynia (principal); M85.80 Other specified disorders of bone density and structure, unspecified site; Z13.820 Encounter for screening for osteoporosis
CPT/HCPCS: 76642; 77062; 77066; 77080; G0279

== ENCOUNTER → 2019-09-08 09:18 | Outpatient (CLI) | payer OTHER, MEDICARE, SELFPAY ==
[2019-07-31 13:41] VITALS: BMI 33.6
--- NOTE | 2019-09-08 09:26 | MRI_ITS ---
STUDY: MRI LUMBAR SPINE WITHOUT CONTRAST REASON FOR EXAM: Female, 74 years old. Intervertebral disc degeneration, spondylolisthesis, leg pain, numbness left leg TECHNIQUE: Standardized fat and water weighted pulse sequences were obtained in the sagittal and axial planes. COMPARISON: X-ray 02/20/2019 FINDINGS: T12-L1: Normal endplates. Normal disc height, hydration and morphology. Normal bilateral facet joints. Normal central canal and bilateral lateral recesses. Normal bilateral intervertebral neural foramina. Normal lumbar lordosis. Mild levoscoliosis centered at L4. Normal conus medullaris that terminates at the L1/L2. L1-2: Mild bilateral facet hypertrophy and ligament flavum hypertrophy. Small left paracentral and foraminal protrusion produces mild spinal stenosis and mild left neural foraminal stenosis. L2-3: Mild bilateral facet hypertrophy and moderate ligament flavum hypertrophy. Mild broad disc protrusion asymmetric to the left produces mild spinal stenosis and mild left neural foraminal stenosis. L3-4: Severe bilateral facet hypertrophy and moderate ligament flavum hypertrophy. 2 mm of anterolisthesis of L3 on L4 with a moderate broad disc protrusion produces mild spinal stenosis with mild bilateral lateral recess stenosis but moderate bilateral neural foraminal stenosis with abutment of the exiting L3 nerve roots bilaterally appear L4-5: Severe bilateral facet hypertrophy and mild ligament flavum hypertrophy. 5 mm of anterolisthesis of L4 and L5 with a mild broad disc protrusion produces moderate spinal stenosis with moderate bilateral lateral recess stenosis and moderate bilateral neural foraminal stenosis with abutment of exiting L4 nerve roots bilaterally. L5-S1: Partial ankylosis of the disc space on the left. No spinal stenosis or neural foraminal stenosis. Normal visualized sacral ala. Normal visualized paraspinous soft tissue structures. MRI/Spine Lumbar (Routine) IMPRESSION: Levoscoliosis and degenerative disc disease as described above. Electronically Signed: Tremaine Stratton MD at 14:57 EST Tel , Service support ,
== END ==
PROVIDERS: PCP Family Medicine; Referring Provider Anesthesiology Pain Medicine; Visit Provider Anesthesiology Pain Medicine
DX: M51.37 Other intervertebral disc degeneration, lumbosacral region (principal); M43.16 Spondylolisthesis, lumbar region
CPT/HCPCS: 72148

== ENCOUNTER 2019-09-21 07:03 | Day surgery (SDC) | payer OTHER, MEDICARE, SELFPAY ==
[2019-07-31 13:41] VITALS: BMI 33.6
--- NOTE | 2019-09-21 07:00 | RAD_ITS ---
PROCEDURE: Left L3-S1 facet joint block. DATE OF EXAMINATION: September 21, 2019 INDICATION: Female, 74 years old. Chronic low back pain. FLUOROSCOPY TIME (if supplied): (10.3 seconds) minutes/seconds. 4 images were obtained. Intraoperative imaging provided for left L3-S1 facet joint block. RAD/L/S Spine Min 4 Views IMPRESSION: Intraoperative imaging provided for left L3-S1 facet joint block. Electronically Signed: Pelon Cintron, at 13:39 EST , Service support ,
[2019-09-21 07:48] VITALS: BP 165/77; PULSE 59; RESP 16; TEMP 36.2; O2SAT 100; BMI 34.8
[2019-09-21] MEDS: Lactated Ringers 1,000 ML 100 ML IV (08:03)
[2019-09-21] MEDS: MethylPREDNISolone Acetate 80 MG/ML Vial (08:15)
[2019-09-21] MEDS: Bupivacaine 0.25% 30 ML Vial (08:16)
[2019-09-21 08:25] VITALS: BP 148/70; BP 165/77; PULSE 72; RESP 18; TEMP 36.3; O2SAT 100
[2019-09-21 08:30] VITALS: BP 163/91; BP 165/77; PULSE 76; RESP 18; O2SAT 100
[2019-09-21 08:35] VITALS: BP 158/80; BP 165/77; PULSE 65; RESP 16; O2SAT 100
[2019-09-21 08:40] VITALS: BP 165/77; BP 169/77; PULSE 63; RESP 18; TEMP 36.4; O2SAT 100
[2019-09-21 08:53] VITALS: BP 165/77
--- NOTE | 2019-09-21 14:01 | OP.PCM_ITS ---
Report of Operation Date of Procedure: 09/21/19 Description of Surgical Findings:: PROCEDURE: Left-sided lumbar facet steroid injection L3, L4, L5, S1 PREOPERATIVE DIAGNOSIS: Lumbosacral spondylosis, lumbosacral degenerative disc disease, and lumbar facet arthropathy POSTOPERATIVE DIAGNOSIS: Lumbosacral spondylosis, lumbosacral degenerative disc disease, and lumbar facet arthropathy ANESTHESIA: MAC COMPLICATIONS: None BLOOD LOSS: Minimal PROCEDURE IN DETAIL: History and physical today was reviewed. Risks and benefits of the procedure were explained. The patient understood, agreed to our procedure, and informed consent was obtained. IV inserted per routine protocol. The patient was taken to the operating room, placed in a prone position with a pillow positioned underneath the abdomen. The left side of her lower back was prepped and draped in a sterile fashion using iodine x3. Under fluoroscopy guidance, on AP view, L3 through S1 vertebral bodies were visualized. Skin and subcutaneous tissues were anesthetized with approximately 5 mL of 1% lidocaine using a 25-gauge regular needle. Under direct visualization with fluoroscopy at approximately 25-degree angle, starting on the left L3, ending on the left S1, passing through the L4-L5 using a 22-gauge 3 1/2-inch spinal needle, the needle was advanced via the skin. The tip of the needle was maneuvered and directed towards the superior and medial gutter of the transverse process at the vicinity of the medial branch. Once the tip of the needle was in contact with the bone, the needle pulled approximately 2 mm off the bone. After negative aspiration of blood with CSF and confirmation of AP as well as oblique view, a total of 8 mL of preservative-free 0.25% Marcaine with 80 mg of Depo- Medrol was injection in divided doses between those 4 levels. The needles were then removed intact. The patient experienced no signs or symptoms intrathecal, intravascular injection. The patient experienced no paraesthesia. The procedure was completed without any apparent difficult, any complication. The patient appeared to tolerate well. ASSESSMENT AND PLAN: This is a 74-year-old female with Lumbosacral spondylosis, lumbosacral degenerative disc disease, and lumbar facet arthropathy, status post left-sided lumbar facet steroid injection L3 through S1. The patient will continue her current medications. The patient will follow in approximately 2 weeks for reevaluation.
== END 2019-09-21 08:59 | disposition home or self-care (01) ==
LOC: SDC 07:03 → AC 07:04
PROVIDERS: PCP Family Medicine; Referring Provider Anesthesiology Pain Medicine; Visit Provider Anesthesiology Pain Medicine
PROC: 3E0T3BZ Introduction of Anesthetic Agent into Peripheral Nerves and Plexi, Percutaneous Approach (ICD-10-PCS; CPT 64493; principal; 2019-09-21 08:15)
DX: M47.817 Spondylosis without myelopathy or radiculopathy, lumbosacral region (principal); M51.37 Other intervertebral disc degeneration, lumbosacral region; M47.816 Spondylosis without myelopathy or radiculopathy, lumbar region; G89.29 Other chronic pain; I48.91 Unspecified atrial fibrillation; M79.7 Fibromyalgia; G47.33 Obstructive sleep apnea (adult) (pediatric); I25.2 Old myocardial infarction; I10 Essential (primary) hypertension; I25.10 Atherosclerotic heart disease of native coronary artery without angina pectoris; E11.9 Type 2 diabetes mellitus without complications; M43.16 Spondylolisthesis, lumbar region; M46.96 Unspecified inflammatory spondylopathy, lumbar region; Z79.899 Other long term (current) drug therapy; Z85.828 Personal history of other malignant neoplasm of skin
CPT/HCPCS: 64493; 64494; 64483; 72110; J7120

== ENCOUNTER 2019-10-19 06:46 | Day surgery (SDC) | payer OTHER, MEDICARE, SELFPAY ==
[2019-10-19] VITALS (7 sets, daily range): BP systolic 149–178; BP diastolic 63–91; PULSE 51–73; RESP 16; TEMP 36.4–36.6; O2SAT 98–99; BMI 33.5
[2019-10-19] MEDS: Lactated Ringers 1,000 ML 100 ML IV (07:21)
--- NOTE | 2019-10-19 07:53 | RAD_ITS ---
STUDY: X-RAY - CERVICAL SPINE REASON FOR EXAM: Female, 74 years old. Block, cervical facets, c4-c7, right TECHNIQUE: 4 intraoperative view(s) of the cervical spine were obtained. COMPARISON: None FINDINGS: Intraoperative imaging provided for right C4-C7 facet joint block. RAD/Cerv Spine 2 or 3 Views IMPRESSION: Intraoperative imaging provided for right C4-C7 facet joint block. Electronically Signed: Pelon Cintron, at 15:07 EST , Service support ,
[2019-10-19] MEDS: Bupivacaine 0.25% 30 ML Vial (07:54)
[2019-10-19] MEDS: MethylPREDNISolone Acetate 80 MG/ML Vial (07:55)
[2019-10-19 08:00] LABS: Bedside Glucose 104 mg/dL (70-110)
--- NOTE | 2019-10-19 08:13 | OP.PCM_ITS ---
Report of Operation Date of Procedure: 10/19/19 Description of Surgical Findings:: PREOPERATIVE DIAGNOSIS: Cervical spondylosis, cervical degenerative disc disease, cervical facet arthropathy POSTOPERATIVE DIAGNOSIS: Cervical spondylosis, cervical degenerative disc disease, cervical facet arthropathy PROCEDURE PERFORMED: Right-sided cervical facet steroid injection, C4, C5, C6, and C7. ANESTHESIA: MAC. BLOOD LOSS: Minimal. COMPLICATIONS: None. DESCRIPTION OF PROCEDURE: History and physical of today was reviewed. Risks and benefits of the procedure were explained. The patient understood and agreed to proceed. Informed consent was obtained. IV inserted per routine protocol. The patient was taken to the operating room and placed in the prone position with a pillow positioned underneath the chest. The neck area was prepped and draped in a sterile fashion using iodine x3. Under fluoroscopy guidance on an AP view, the C4 through C7 vertebral bodies were visualized at approximately 10- degree angle, starting on the right C4, ending on the right C7, passing through the C5 and C6. Using a 25-gauge 3-1/2-inch spinal needle, the needle was advanced via the skin. The tip of the needle was maneuvered and directed towards the epiphyseal junction of each corresponding vertebra. Once the tip of the needle was at the vicinity of the medial branch, the needle was pulled approximately 2 mm off the bone. After negative aspiration of blood or CSF and confirmation on AP, oblique as well as lateral view, a total of 4 mL of preservative-free 0.25% Marcaine with 80 mg of Depo-Medrol was injected in divided doses between those four levels. The needles were then removed intact. The patient experienced no sign or symptoms of intrathecal or intravascular injection. The patient experienced no paresthesia. The procedure was completed without any apparent difficulty or any complications. The patient appeared to tolerate it well. ASSESSMENT AND PLAN: This is a 74-year-old female with cervical spondylosis, cervical degenerative disc disease, cervical facet arthropathy status post right-sided cervical facet steroid injection C4-C7 patient will continue her current medications patient will follow in approximately 2 weeks for reevaluation.
== END 2019-10-19 09:00 | disposition home or self-care (01) ==
LOC: SDC 06:48 → AC 06:49
PROVIDERS: PCP Family Medicine; Referring Provider Anesthesiology Pain Medicine; Visit Provider Anesthesiology Pain Medicine
PROC: 3E0U3BZ Introduction of Anesthetic Agent into Joints, Percutaneous Approach (ICD-10-PCS; CPT 64490; principal; 2019-10-19 07:45)
DX: M50.321 Other cervical disc degeneration at C4-C5 level (principal); M47.812 Spondylosis without myelopathy or radiculopathy, cervical region; G47.33 Obstructive sleep apnea (adult) (pediatric); I10 Essential (primary) hypertension; I25.2 Old myocardial infarction; Z79.899 Other long term (current) drug therapy; M46.96 Unspecified inflammatory spondylopathy, lumbar region
CPT/HCPCS: 64491; 64492; 64490; 72040; 82962; J7120

== ENCOUNTER → 2019-12-29 13:57 | Outpatient (CLI) | payer OTHER, MEDICARE, SELFPAY ==
[2019-10-19 07:07] VITALS: BMI 33.5
[2019-12-29 14:32] LABS: Bacteria 0 SEEN /hpf (None Seen); Mucous, Urine 0 SEEN /hpf (<or=2+); Red Blood Cells-Urine 0 SEEN /hpf (0-5)
[2019-12-29 16:41] LABS: Color, Urine Yellow (Yellow); Glucose, Dipstick Normal (Normal); Ketone-Dipstick Negative (Negative); Leukocyte Esterase-Dipstick 100 /ul (Negative); Nitrite-Dipstick Negative (Negative); Occult Blood-Urine Negative /ul (Negative); Protein-Dipstick Negative (Negative); Urine Bilirubin Dipstick Negative (Negative); Urine Clarity Sl. Cloudy (Clear); Urine Urobilinogen Normal (Normal)
[2019-12-29 16:58] LABS: White Blood Cells 5-10 SEEN /hpf (0-5)
[2019-12-29 16:59] LABS: Squamous Epithelial Cells - UA 0-5 SEEN /hpf (5-10)
== END ==
PROVIDERS: PCP Family Medicine; Visit Provider Family Medicine
DX: N39.0 Urinary tract infection, site not specified (principal)
CPT/HCPCS: 81001; 87086; 87088

== ENCOUNTER → 2020-05-18 | Outpatient (CLI) | payer OTHER, MEDICARE, SELFPAY ==
[2020-03-22 14:38] VITALS: BMI 33.8
[2020-05-18 09:03] LABS: Erythrocyte Sedimentation Rate 59 mm/hr (0-30)
[2020-05-18 09:29] LABS: ALB/GLOB Ratio 0.8 RATIO (0.9-2.4); AST(SGOT) 14 U/L (15-37); Alanine Aminotransfer ALT/SGPT 22 U/L (13-56); Albumin, Serum 3.4 g/dL (3.2-5.0); Alkaline Phosphatase 75 U/L (45-117); Anion Gap 3 (5-15); BUN 25 mg/dL (7-18); BUN/Creat Ratio 30.8 RATIO (10-20); CRP 3.46 mg/L (0.0-3.0); Calcium,Total 8.9 mg/dL (8.5-10.1); Chloride 106 mmol/L (98-107); Cholesterol 196 mg/dL (200); Creatinine, Serum 0.81 mg/dL (0.55-1.02); EST Glomerular Filtration Rate 73 mL/min (>60); Est Glom Filt Rate - Afr Amer 88 mL/min (>60); Globulin 4.3 g/dL (2.2-4.2); Glucose 115 mg/dL (74-106); High Density Lipoprotein 57 mg/dL; Potassium 3.6 mmol/L (3.5-5.1); Protein, Total 7.7 g/dL (6.4-8.2); Rheumatoid Factor < 10.0 IU/mL (<15); Sodium Level 138 mmol/L (136-145); Triglycerides 130 mg/dL; Very Low Density Lipoprotein 26 mg/dL (5-40)
[2020-05-18 09:40] LABS: Microalbumin,Random Urine 23.3 mg/L (NO RANGE EST.); Microalbumin:Creatinine Ratio 14.6 mg/g CRE (<30 mg/g CRE)
[2020-05-18 09:48] LABS: Hemoglobin A1c 6.8 % (3.8-5.6)
[2020-05-19 17:38] LABS: ANTINUCLEAR ANTIBODIES DIRECT Negative (Negative)
== END | disposition home or self-care (01) ==
LOC: LAB 08:12
PROVIDERS: PCP Family Medicine; Referring Provider Family Medicine; Visit Provider Family Medicine
DX: E11.9 Type 2 diabetes mellitus without complications (principal); M19.90 Unspecified osteoarthritis, unspecified site; E78.5 Hyperlipidemia, unspecified
CPT/HCPCS: 36415; 80053; 80061; 82043; 82570; 83036; 85652; 86038; 86140; 86431

== ENCOUNTER 2020-06-06 09:07 | Day surgery (SDC) | payer OTHER, MEDICARE, SELFPAY ==
[2020-03-22 14:38] VITALS: BMI 33.8
--- NOTE | 2020-06-06 07:20 | RAD_ITS ---
PROCEDURE: Caudal block. DATE OF EXAMINATION: 06/06/2020. INDICATION: Female, 74 years old. Low back pain. FLUOROSCOPY TIME (if supplied): (5 seconds) minutes/seconds. 2 coned-down images were obtained. Intraoperative imaging provided for caudal block. RAD/Fluor Guidance for Spine Inj IMPRESSION: Intraoperative imaging provided for caudal block. Electronically Signed: Pelon Cintron, at 14:21 EDT , Service support ,
[2020-06-06] MEDS: Lactated Ringers 1,000 ML 100 ML IV (09:54)
[2020-06-06] MEDS: 0.9% Normal Saline (Pres. free 10 ML Vial (10:34)
[2020-06-06] MEDS: Bupivacaine 0.25% 30 ML Vial (10:34)
[2020-06-06] MEDS: MethylPREDNISolone Acetate 80 MG/ML Vial (10:34)
[2020-06-06 10:40] VITALS: BP 141/99; BP 148/57; PULSE 68; RESP 18; TEMP 531; TEMP 987.8; O2SAT 100
[2020-06-06 10:45] VITALS: BP 148/57; BP 148/95; PULSE 68; RESP 18; O2SAT 100
[2020-06-06 10:50] VITALS: BP 111/91; BP 148/57; PULSE 70; RESP 18; O2SAT 100
[2020-06-06 10:55] VITALS: BP 127/53; BP 148/57; PULSE 57; RESP 18; O2SAT 91
[2020-06-06 11:00] VITALS: BP 139/67; BP 148/57; PULSE 56; RESP 18; TEMP 37.1; O2SAT 97
[2020-06-06 11:26] VITALS: BP 148/57
--- NOTE | 2020-06-06 16:36 | PCM.OPRPT ---
Report of Operation Date of Procedure: 06/06/20 Description of Surgical Findings:: PREOPERATIVE DIAGNOSIS: Lumbosacral radiculopathy, lumbosacral degenerative disc disease, lumbosacral spinal stenosis POSTOPERATIVE DIAGNOSIS: Lumbosacral radiculopathy, lumbosacral degenerative disc disease, lumbosacral spinal stenosis PROCEDURE PERFORMED: Caudal epidural steroid injection. ANESTHESIA: MAC. BLOOD LOSS: Minimal. COMPLICATIONS: None. DESCRIPTION OF PROCEDURE: History and physical of today was reviewed. Risks and benefits of the procedure were explained. The patient understood and agreed to proceed. Informed consent was obtained. IV inserted per routine protocol. The patient was taken to the operating room and placed in the prone position with a pillow positioned underneath the abdomen. The lower back and tailbone area was prepped and draped in a sterile fashion using iodine x3. Under fluoroscopy guidance on a lateral view, the caudal space was identified. The skin and subcutaneous tissue was anesthetized with approximately 3 mL of 1% lidocaine using a 25-gauge regular needle. Under direct visualization with fluoroscopy, using a 22-gauge 3-1/2-inch spinal needle, the needle was advanced via the skin through the sacral hiatus. The tip of the needle was passed through the sacrococcygeal ligament and advanced to approximately S4 area. After negative aspiration of blood or CSF, a total of 3 mL of contrast was injected to confirm correct placement of the needle as well as cephalad spread. The spread was followed to approximately L5 area. After confirmation on AP as well as lateral view and repeated negative aspiration, a total of 15 mL of preservative-free 0.125% Marcaine with 80 mg of Depo-Medrol was injected easily. The needle was then removed intact. The patient experienced no sign or symptoms of intrathecal or intravascular injection. The patient experienced no paresthesia. The procedure was completed without any apparent difficulty or any complications. The patient appeared to tolerate it well. ASSESSMENT AND PLAN: This is a 74-year-old female with lumbosacral radiculopathy, lumbosacral disc disease, lumbosacral spinal stenosis status post caudal epidural steroid injection patient will continue her current medications, patient will follow in approximately 2 weeks for reevaluation.
== END 2020-06-06 11:47 | disposition home or self-care (01) ==
LOC: SDC 09:08 → AC 09:33
PROVIDERS: PCP Family Medicine; Referring Provider Anesthesiology Pain Medicine; Visit Provider Anesthesiology Pain Medicine
PROC: 3E0S3BZ Introduction of Anesthetic Agent into Epidural Space, Percutaneous Approach (ICD-10-PCS; CPT 62282; principal; 2020-06-06 10:25)
DX: M51.17 Intervertebral disc disorders with radiculopathy, lumbosacral region (principal); M48.07 Spinal stenosis, lumbosacral region; G89.29 Other chronic pain; M19.90 Unspecified osteoarthritis, unspecified site; I25.10 Atherosclerotic heart disease of native coronary artery without angina pectoris; I25.2 Old myocardial infarction; I10 Essential (primary) hypertension; E11.51 Type 2 diabetes mellitus with diabetic peripheral angiopathy without gangrene; M79.7 Fibromyalgia; Z95.1 Presence of aortocoronary bypass graft; Z79.899 Other long term (current) drug therapy
CPT/HCPCS: 62323; 64483; 77003; J7120; J3490

== ENCOUNTER → 2020-08-29 13:01 | Outpatient (CLI) | payer OTHER, MEDICARE, SELFPAY ==
[2020-06-06 09:54] VITALS: BMI 32.8
--- NOTE | 2020-08-29 13:10 | RAD_ITS ---
STUDY: X-RAY - RIGHT HAND REASON FOR EXAM: Arthralgia and lumps. TECHNIQUE: 2 view(s) of the hand. COMPARISON: None. FINDINGS: There is osteopenia. Normal radiocarpal articulation. Normal distal radioulnar joint. Normal visualized carpal bones. Normal carpal articulations Normal carpometacarpal articulation of the thumb. Normal second through fifth carpometacarpal joints. Normal metacarpi. There is lyzl-fl-[id number] joint space narrowing of the metacarpophalangeal joint of the thumb. Normal interphalangeal joint of the thumb. Normal proximal and distal phalanges of the thumb. Normal metacarpophalangeal joints of the second through fifth fingers. There is joint space narrowing of the proximal and distal interphalangeal joints of the second through fifth fingers. Normal phalanges of the second through fifth fingers. The soft tissue structures are unremarkable. RAD/Hand 2 Views IMPRESSION: Osteoarthritis. Electronically Signed: Jose Gooden MD at 14:50 EST Tel , Service support ,
--- NOTE | 2020-08-29 13:10 | RAD_ITS ---
STUDY: X-RAY - LEFT HAND REASON FOR EXAM: Arthralgia and lumps. TECHNIQUE: 2 view(s) of the hand. COMPARISON: None. FINDINGS: There is osteopenia. Normal radiocarpal articulation. Normal distal radioulnar joint. Normal visualized carpal bones. Normal carpal articulations There is moderately severe joint space narrowing of the carpometacarpal articulation of the thumb with subchondral cystic change. Normal second through fifth carpometacarpal joints. Normal metacarpi. Normal metacarpophalangeal joint of the thumb. Normal interphalangeal joint of the thumb. Normal proximal and distal phalanges of the thumb. Normal metacarpophalangeal joints of the second through fifth fingers. There is joint space narrowing of the proximal and distal interphalangeal joints of the second through fifth fingers. Normal phalanges of the second through fifth fingers. The soft tissue structures are unremarkable. RAD/Hand 2 Views IMPRESSION: Osteoarthritis. Electronically Signed: Jose Gooden MD at 14:59 EST Tel , Service support ,
--- NOTE | 2020-08-29 13:10 | RAD_ITS ---
STUDY: X-RAY - RIGHT ELBOW REASON FOR EXAM: Female, 75 years old. ARTHRALGIA, and quot;LUMPS and quot; FORMED OVER LAST YEAR -- PT HAS HX OF TAKING ARTHRITIS MEDICATION AND STOPPING TECHNIQUE: 3 view(s) of the elbow. COMPARISON: None. FINDINGS: There is demineralization of the visualized humerus, radius and ulna. There is a benign smooth bony exostosis in the posterior aspect of the elbow for summation of shadows. There is mild degenerative arthrosis of the radiocapitellar and ulnotrochlear articulations. The soft tissue structures are unremarkable. RAD/Elbow min 3 Views IMPRESSION: Mild degenerative change. Bony osteopenia, no visualized fracture or joint effusion. Electronically Signed: Bekah Simmons MD at 8:02 EST Tel , Service support ,
[2020-08-29 15:26] LABS: Erythrocyte Sedimentation Rate 67 mm/hr (0-30)
[2020-08-29 15:29] LABS: CRP < 2.90 mg/L (0.0-3.0)
[2020-08-31 12:08] LABS: RNP Ab 0.5 AI (0.0-0.9)
[2020-08-31 14:35] LABS: Smith Ab <0.2 AI (0.0-0.9)
[2020-09-01 08:15] LABS: CCP IgG Antibodies 6 units (0-19)
== END ==
PROVIDERS: PCP Family Medicine
DX: M25.50 Pain in unspecified joint (principal)
CPT/HCPCS: 36415; 73080; 73120; 85652; 86140; 86200; 86235

== ENCOUNTER 2021-01-20 07:33 | Day surgery (SDC) | payer OTHER, MEDICARE, SELFPAY ==
[2020-12-13 15:03] VITALS: BMI 34.0
[2021-01-20] VITALS (7 sets, daily range): BP systolic 118–152; BP diastolic 64–82; PULSE 61–82; RESP 18; TEMP 36.2–36.8; O2SAT 99–100; BMI 32.1
--- NOTE | 2021-01-20 08:45 | COLBX_PTH ---
PATIENT: FAUSTO YBARRA LOC: EN U#:[id number] AGE/SX: 75/F ROOM: RE01/20/[address]: Dr. Manny Cintron MD : 1945 BED: DIS: 01/20/2021 SPEC #: [id number] RECD: 01/20/21 11:02 STATUS: JORGE SMITH #: [id number] GRZEGORZ: 01/20/21 08:[address]: Manny Cintron DEPT: SURGICAL PATHOLOGY RECD BY: Lexi Kapoor ENTERED: 01/20/21 12:05 SP TYPE: COLON BX OTHR DR: Dr. Musa Cintron III, MD Tissues: Sigmoid colon biopsy Procedures: Surgery Specimen Level IV HEADER OPERATION: Colonoscopy (MAC) PRE-OP DIAGNOSIS: IBS, diverticulitis, anemia TISSUE SUBMITTED: Biopsy of sigmoid colon polyp MICROSCOPIC DIAGNOSIS Sigmoid colon polyp, biopsy: Fragments of colonic mucosa with focal hyperplastic change. AM:torrey 01/23/2021 MICROSCOPIC DESCRIPTION Slides are reviewed. GROSS DESCRIPTION Received in fixative is one container labeled with the patient's name and designated sigmoid colon polyp. The specimen consists of two irregular fragments of light ponce soft tissue that in aggregate measure 0.6 x 0.6 x 0.1 cm. The specimen is totally submitted in one cassette. / AM:torrey 01/20/21 TC:5 CPT: 23769
[2021-01-20 09:00] LABS: Bedside Glucose 144 mg/dL (70-110)
[2021-01-20] MEDS: Lactated Ringers 1,000 ML 100 ML IV (09:00)
--- NOTE | 2021-01-20 09:00 | PCM.HP.BLA ---
History and Physical Date of Admission: 01/20/21 Intake Visit Reasons: cscope, abdominal pain Chief Complaint: abdominal pain [employer]inator [employer] Required: No Is patient in pain?: No (LLQ pain on and off) Allergies ciprofloxacin Allergy (Verified 12/13/20 15:07) Other Iodinated Contrast Media [Iodinated Contrast Media - IV Dye] Allergy (Verified 12/13/20 15:07) Other meperidine HCl [From Demerol] Adverse Reaction (Verified 12/13/20 15:07) Vomiting promethazine [From Phenergan] Adverse Reaction (Verified 12/13/20 15:07) anxiety,restlessness rosuvastatin calcium [From Crestor] Adverse Reaction (Verified 12/13/20 15:07) Pain in joints Medications metoprolol succinate 50 mg tablet,extended release 24 hr 50 mg PO DAILY #90 tab 01/07/19 [Rx Confirmed 12/13/20] multivitamin 1 tab PO DAILY 01/07/19 [History Confirmed 12/13/20] <Dr. Manny Cintron MD - Last Filed: 12/13/20 16:38> Vital Signs 12/13/20 15:03 12/13/20 15:04 12/13/20 15:09 Height 5 ft 1 in Weight: 180 lb BMI 34.0 BP 176/98 H 164/102 H 162/99 H Blood Pressure Location Rt brachial Lt brachial Lt brachial Position Sitting Sitting Sitting Respiration 16 Pulse 63 Pulse Source Monitor Temp 97.5 F L Temp Source Temporal Pulse Oximetry (%) 97 Oxygen Delivery Method room air [facility] <Jena Morataya - Last Filed: 12/13/20 15:36> Medical History (Updated 12/13/20 @ 16:[address] Manny Cintron MD) Anemia Anxiety and depression Arthritis Atherosclerotic heart disease of [place] coronary artery without angina pectoris Back problem Bone fracture Chronic headaches Diverticulitis Diverticulitis Essential hypertension Hives Hyperlipidemia IBS (irritable bowel syndrome) Low calcium levels Macular degeneration Neuropathy Nonrheumatic aortic (valve) stenosis Osteoarthritis Osteoporosis Palpitations Paroxysmal atrial fibrillation Recurrent UTI Seasonal allergies Sjogren's disease Skin cancer TIA (transient ischemic attack) Type 2 diabetes mellitus Vision problems Surgical History (Updated 12/13/20 @ 15:03 by Jena Morataya) H/O coronary artery bypass surgery (11/25/15) H/O gastric bypass H/O right coronary artery stent placement (07/20/03) History of appendectomy History of carpal tunnel release History of gastric surgery History of hysterectomy History of repair of rotator cuff History of tonsillectomy History of total left knee replacement History of total right knee replacement Hx of cholecystectomy Family History Mother Hypertension CAD (coronary artery disease) Myocardial infarction Father CAD (coronary artery disease) Diabetes CVA (cerebral vascular accident) Sister CAD (coronary artery disease) Myocardial infarction Hx of CABG Social History (Updated 09/24/20 @ 11:59 by Tita VÁZQUEZ, PA) Smoking Status: Never smoker alcohol intake: current alcohol intake frequency: holidays/special occasions only substance use type: does not use caffeine: Yes Type: coffee Number of servings: 1 what type of physical activity do you participate in: walking frequency: daily duration: 45-60 minutes/day seatbelt use: always do you feel safe at home: Yes HPI <Jena Morataya - Last Filed: 12/13/20 15:36> HPI HPI: FAUSTO YBARRA, is a 75 F who presents to the office today for <Dr. Manny Cintron MD - Last Filed: 12/13/20 16:38> HPI HPI: 75-year-old female presents to discuss problems with left lower quadrant abdominal pain. August 2020 the patient developed left lower quadrant abdominal pain. She had some leftover antibiotics so she took those and had gradual improvement. Her concern is that she has had multiple previous bouts of diverticulitis. Some have required hospitalization. She is had a previous history suggesting IBS with diarrhea. Her most recent colonoscopy was December 28, 2013. She had a slightly tortuous sigmoid colon with moderate diverticulosis. Random biopsies were obtained at that time. There was no gross evidence of inflammation. Pertinent laboratory include August 29, 2020 a sed rate of 67 with a CRP of less than 2.9. Although patient has intermittent diarrhea she has ongoing crampy abdominal pain. She has not noticed any bright red blood per rectum. She does carry a history of Sjogren's disease and diabetes and osteoarthritis in addition to atherosclerotic cardiovascular disease. HPI <Jena Morataya - Last Filed: 12/13/20 15:36> HPI HPI: FAUSTO YBARRA, is a 75 F who presents to the office today for ROS <Jena Morataya - Last Filed: 12/13/20 15:36> General General: Yes fatigue; No weight change, appetite, colon cancer or breast cancer HEENT HEENT: Yes eye surgery; No difficulty swallowing, eye injury, swollen glands or hoarseness Endo Endocrine: No thyroid disease, diabetes mellitus, thyroid cancer, Hair loss, heat intolerance or cold intolerance Skin Skin: Yes changing moles; No rash Musc Musculoskeletal: Yes back problems and arthritis; No rheumatoid arthritis, gout or joint pain Cardio Cardiovascular: Yes murmur, heart disease, atrial fibrillation, high blood pressure, heart attack and heart stent; No pacemaker, palpitations, shortness of breat with exertion or chest pain Psych Psychiatric: No depression, anxiety or hearing voices Resp Respiratory: No shortness of breath, No sleep apnea, No cough, No COPD, No asthma, No emphysema and No wheezing Gastro Gastrointestinal: Yes abdominal pain, No nausea or vomiting, Yes diarrhea, No constipation, No blood in stool, No acid reflux, No hemorrhoids, No ulcers, No gallbladder problem and No black,tarry stools Mike Hematologic: No blood thinners, No blood disorders, No bleeding, No anemia and No blood clots Neuro Neurologic: Yes numbness and Yes tingling Exam <Jena Morataya - Last Filed: 12/13/20 15:36> Cardio Heart Sounds: murmur <Dr. Manny Cintron MD - Last Filed: 12/13/20 16:38> Const General: cooperative HENMT Head: normal to inspection Neck Carotids: normal carotid upstroke and bruit bilaterally Other: Supple Resp Effort & Inspection: normal respiratory effort Auscultation: clear to auscultation bilaterally Cardio Rate: regular rate Rhythm: regular rhythm GI Other: Soft, nontender, no hepatosplenomegaly, mild diffuse nonspecific tenderness Neuro General: patient alert, patient awake and patient oriented x3 Extrem General: no calf tenderness bilaterally Assessment and Plan <Jena Morataya - Last Filed: 12/13/20 15:36> Assessment and Plan (1) IBS (irritable bowel syndrome): Status: Chronic (2) Diverticulitis: Status: Chronic (3) Anemia: Status: Chronic <Dr. Manny Cintron MD - Last Filed: 12/13/20 16:38> Assessment and Plan (1) Left lower quadrant abdominal pain: Plan: 75-year-old female with left lower quadrant abdominal pain. She also has some more chronic diarrhea. She has had a previous history of bouts of diverticulitis. Most recent colonoscopy was December 28, 2013. I propose for her a colonoscopy with possible biopsy or polypectomy as indicated. She is aware of the technique, benefit, risk of alternatives. We will utilize monitored anesthesia care. We will schedule and proceed at her discretion. I appreciate the ongoing opportunity of assisting with her surgical care. Copy: Dr. Musa Cintron, III Manny Cintron M.D., F.A.C.S. Coding Level of Care Code Off vis,new,level 3 Diagnoses IBS (irritable bowel syndrome) K58.9 Diverticulitis K57.92 Anemia D64.9 Left lower quadrant abdominal pain R10.32 I have re-examined the patient. There are no clinical changes since date of exam.
--- NOTE | 2021-01-20 15:09 | OP.CCLET_ITS ---
01/20/2021 Musa Cintron [address] [place] [address] Re : Colonoscopy procedure for Rebekah Valencia Dear Dr. Cintron This procedure was performed on Wednesday, January 20, 2021. My impressions and recommendations are as follows: Impressions : - Hemorrhoids found on perianal exam. - Diverticulosis in the sigmoid colon and in the descending colon. - Erythematous mucosa in the sigmoid colon. Biopsied. - The examination was otherwise normal. Recommendations : - Discharge patient to home. - Resume previous diet. - Continue present medications. - Repeat colonoscopy in 10 years for screening purposes. - Telephone my office for pathology results in 1 week. My findings are described in the full procedure note, which is enclosed. If I can be of further assistance, please feel free to contact me at Doctor phone number(s): Work: . Sincerely, Manny Cintron MD 01/20/2021 9:25:13 AM This report has been signed electronically.
--- NOTE | 2021-01-20 15:09 | OP.COLON_ITS ---
Patient Name: Rebekah Valencia Procedure Date: 01/20/2021 8:50 AM Date of : 1945 Age: 75 Procedure: Colonoscopy Indications: Abdominal pain in the left lower quadrant Providers: Manny Cintron MD Medicines: See the Anesthesia note for documentation of the administered medications Patient Profile: Last Colonoscopy: December 2013. Complications: No immediate complications. Procedure: Pre-Anesthesia Assessment: - Prior to the procedure, a History and Physical was performed, and patient medications and allergies were reviewed. The patient's tolerance of previous anesthesia was also reviewed. The risks and benefits of the procedure and the sedation options and risks were discussed with the patient. All questions were answered, and informed consent was obtained. Prior Anticoagulants: The patient has taken no previous anticoagulant or antiplatelet agents. ASA Grade Assessment: II - A patient with mild systemic disease. After reviewing the risks and benefits, the patient was deemed in satisfactory condition to undergo the procedure. After I obtained informed consent, the scope was passed under direct vision. Throughout the procedure, the patient's blood pressure, pulse, and oxygen saturations were monitored continuously. The pediatric colonoscope was introduced through the anus and advanced to the cecum, identified by appendiceal orifice and ileocecal valve. The colonoscopy was somewhat difficult due to a tortuous colon. The patient tolerated the procedure well. The quality of the bowel preparation was good. The ileocecal valve and the appendiceal orifice were photographed. Scope In: 9:05:33 AM Scope Withdrawal Time 0 hours 7 minutes 3 seconds Scope Out: 9:20:53 AM Total Procedure Duration Time 0 hours 15 minutes 20 seconds Findings: Hemorrhoids were found on perianal exam. Multiple diverticula were found in the sigmoid colon and descending colon. A localized area of mildly erythematous mucosa was found in the sigmoid colon. Biopsies were taken with a cold forceps for histology. The exam was otherwise without abnormality. Impression: - Hemorrhoids found on perianal exam. - Diverticulosis in the sigmoid colon and in the descending colon. - Erythematous mucosa in the sigmoid colon. Biopsied. - The examination was otherwise normal. Recommendation: - Discharge patient to home. - Resume previous diet. - Continue present medications. - Repeat colonoscopy in 10 years for screening purposes. - Telephone my office for pathology results in 1 week. Procedure Code(s): --- Professional --- 56748, Colonoscopy, flexible; with biopsy, single or multiple Diagnosis Code(s): --- Professional --- K64.9, Unspecified hemorrhoids K63.89, Other specified diseases of intestine R10.32, Left lower quadrant pain K57.30, Diverticulosis of large intestine without perforation or abscess without bleeding CPT copyright 2017 [employer]. All rights reserved. The codes documented in this report are preliminary and upon circular knife machine cutter review may be revised to meet current compliance requirements. Manny Cintron MD 01/20/2021 9:25:13 AM This report has been signed electronically. Number of Addenda: 0 Note Initiated On: 01/20/2021 8:50 AM
== END 2021-01-20 10:19 ==
LOC: EN 07:35 → AC 09:05
PROVIDERS: PCP Family Medicine; Referring Provider Surgery; Visit Provider Surgery
PROC: 0DJD8ZZ Inspection of Lower Intestinal Tract, Via Natural or Artificial Opening Endoscopic (ICD-10-PCS; CPT 45378; principal; 2021-01-20 08:40)
DX: K64.9 Unspecified hemorrhoids (principal); K63.89 Other specified diseases of intestine; K57.30 Diverticulosis of large intestine without perforation or abscess without bleeding; E78.5 Hyperlipidemia, unspecified; I25.10 Atherosclerotic heart disease of native coronary artery without angina pectoris; I10 Essential (primary) hypertension; I48.0 Paroxysmal atrial fibrillation; Z86.73 Personal history of transient ischemic attack (TIA), and cerebral infarction without residual deficits; D64.9 Anemia, unspecified; E11.40 Type 2 diabetes mellitus with diabetic neuropathy, unspecified; F41.9 Anxiety disorder, unspecified; K58.9 Irritable bowel syndrome, unspecified; M19.90 Unspecified osteoarthritis, unspecified site; M81.0 Age-related osteoporosis without current pathological fracture; M35.00 Sjogren syndrome, unspecified; Z88.5 Allergy status to narcotic agent; Z88.8 Allergy status to other drugs, medicaments and biological substances; Z90.49 Acquired absence of other specified parts of digestive tract; Z95.1 Presence of aortocoronary bypass graft; Z95.5 Presence of coronary angioplasty implant and graft; Z98.84 Bariatric surgery status; Z96.653 Presence of artificial knee joint, bilateral
CPT/HCPCS: 45380; 82962; 88305; J7120; J2405

== ENCOUNTER → 2021-06-03 07:00 | Outpatient (CLI) | payer OTHER, MEDICARE, SELFPAY ==
[2021-06-03 07:27] LABS: Absolute Lymphocyte Count 1.55 X10^3/uL (0.83-4.51); Absolute Neutrophil Count 2.9 X10^3/uL (2.0-7.7); Basophil# 0.04 X10^3/uL; Basophil% 0.8 % (0-1); Eosinophil# 0.19 X10^3/uL; Eosinophils% 3.6 % (0-5); Hematocrit 37.6 % (37-47); Hemoglobin 11.3 g/dL (12.0-15.0); Lymphocyte # 1.55 X10^3/ul (0.83-4.51); Lymphocyte % 29.5 % (19-41); Mean Corp Hgb Conc 30.1 g/dL (32-36); Mean Corpuscular Hgb 24.5 pg (27.0-32.0); Mean Corpuscular Volume 81.6 fL (81-99); Mean Platelet Vol. 8.3 fl (6.2-12.0); Monocyte# 0.55 X10^3/uL; Monocyte% 10.5 % (0-10); NRBC Flagged by Analyzer 0 % (0-5); Neutrophil # 2.91 X10^3/uL (2.7-7.7); Neutrophil % 55.4 % (47-70); Platelet Count 304 K/mm3 (150-450); RBC Distribution Width CV 15.7 % (11.6-14.6); RBC Distribution Width SD 46.5 fl (35.1-43.9); Red Blood Count 4.61 M/mm3 (4.2-5.4); White Blood Count 5.3 K/mm3 (4.4-11.0)
[2021-06-03 07:59] LABS: ALB/GLOB Ratio 0.7 RATIO (0.9-2.4); AST(SGOT) 15 U/L (15-37); Alanine Aminotransfer ALT/SGPT 18 U/L (13-56); Albumin, Serum 3.3 g/dL (3.2-5.0); Alkaline Phosphatase 67 U/L (45-117); Anion Gap 8 (5-15); BUN 27 mg/dL (7-18); BUN/Creat Ratio 36.8 RATIO (10-20); Calcium,Total 8.9 mg/dL (8.5-10.1); Chloride 107 mmol/L (98-107); Cholesterol 221 mg/dL (200); Creatinine, Serum 0.73 mg/dL (0.55-1.02); EST Glomerular Filtration Rate 82 mL/min (>60); Est Glom Filt Rate - Afr Amer 99 mL/min (>60); Globulin 4.6 g/dL (2.2-4.2); Glucose 110 mg/dL (74-106); High Density Lipoprotein 62 mg/dL; Potassium 3.9 mmol/L (3.5-5.1); Protein, Total 7.9 g/dL (6.4-8.2); Sodium Level 142 mmol/L (136-145); Thyroid Stim Hormone (TSH) 1.68 uIU/mL (0.358-3.74); Triglycerides 99 mg/dL; Very Low Density Lipoprotein 20 mg/dL (5-40)
[2021-06-03 08:12] LABS: Hemoglobin A1c 6.5 % (3.8-5.6)
[2021-06-05 10:53] LABS: Vitamin D,25 Hydroxy 36.5 ng/mL
== END ==
PROVIDERS: PCP Family Medicine
DX: E11.9 Type 2 diabetes mellitus without complications (principal); I25.10 Atherosclerotic heart disease of native coronary artery without angina pectoris; I10 Essential (primary) hypertension; E55.9 Vitamin D deficiency, unspecified
CPT/HCPCS: 36415; 80053; 80061; 82306; 83036; 84443; 85025

== ENCOUNTER → 2021-07-28 07:11 | Outpatient (CLI) | payer OTHER, MEDICARE, SELFPAY ==
--- NOTE | 2021-07-28 07:24 | ECHOD_ITS ---
Reason For Study: HLD Procedure This was a 2D Doppler, Color Flow transthoracic echocardiogram. Exam performed in department. Left Ventricle Normal LV size. Left ventricular systolic function is normal. The estimated ejection fraction is 60 %. Stage 1 diastolic dysfunction. No regional wall motion abnormalities noted. Right Ventricle Normal RV size. Normal systolic function. Atria Normal left atrium. Normal right atrium. Mitral Valve Normal mitral valve. Mild (1+) eccentric mitral valve insufficiency. Tricuspid Valve Normal tricuspid valve. Mild (1+) tricuspid valve insufficiency. Pulmonary artery systolic pressure is 38 mmHg. Aortic Valve Trisinus/trileaflet aortic valve. Mild focal aortic valve calcification. Peak aortic valve gradient 21 mmHg. Mean aortic valve gradient 12 mmHg. Mild aortic stenosis. Pulmonic Valve Normal pulmonic valve. Mild (1+) pulmonic valve insufficiency. Great Vessels Normal aortic root. The pulmonary artery is normal size. Normal inferior vena cava. Pericardium/Pleural No pericardial effusion. MMode/2D Measurements & Calculations LVIDd: 4.4 cm IVSd: 1.1 cm LVOT diam: 2.0 cm LVIDs: 2.7 cm LVPWd: 1.1 cm LVOT area: 3.2 cm2 RVDd: 3.3 cm FS: 38.7 % Ao root diam: 3.9 cm LAV(MOD-bp): 65.2 ml LVAd ap4: 25.4 cm2 LAV(MOD-bp) Indexed: 37.5 ml/m2 LVLd ap4: 7.3 cm LAV(MOD-sp2): 58.6 ml EDV(MOD-sp4): 74.1 ml LAV(MOD-sp4): 65.0 ml EDV(sp4-el): 75.2 ml LVAs ap4: 15.5 cm2 LVLs ap4: 6.2 cm ESV(MOD-sp4): 32.9 ml ESV(sp4-el): 33.1 ml EF(MOD-sp4): 55.6 % EF(sp4-el): 56.1 % LVAd ap2: 26.0 cm2 SV(MOD-sp4): 41.2 ml SV(MOD-sp2): 50.1 ml LVLd ap2: 7.7 cm EDV(MOD-sp2): 76.5 ml EDV(sp2-el): 74.4 ml LVAs ap2: 14.0 cm2 LVLs ap2: 6.5 cm ESV(MOD-sp2): 26.4 ml ESV(sp2-el): 25.3 ml EF(MOD-sp2): 65.5 % SV(sp4-el): 42.2 ml LA dimension(2D): 3.9 cm LA A4 area: 20.9 cm2 RA A4 area: 12.8 cm2 Doppler Measurements & Calculations MV E max james: 66.5 cm/sec Lat Peak E' James: 7.7 cm/sec Med Peak E' James: 5.6 cm/sec MV A max james: 82.5 cm/sec E/E' lat: 8.7 E/E' med: 12.0 MV E/A: 0.81 Ao V2 max: 230.7 cm/sec LV V1 max: 85.9 cm/sec SV(LVOT): 69.1 ml Ao max P.3 mmHg LV V1 max P.0 mmHg Ao V2 mean: 163.2 cm/sec LV V1 mean P.6 mmHg Ao mean P.7 mmHg LV V1 mean: 58.4 cm/sec Ao V2 VTI: 54.2 cm LV V1 VTI: 21.6 cm DELISA(I,D): 1.3 cm2 DELISA(V,D): 1.2 cm2 PA V2 max: 95.2 cm/sec TR max james: 293.5 cm/sec TR max P.5 mmHg ECHO/Echo Complete Interpretation Summary Normal LV size. Left ventricular systolic function is normal. The estimated ejection fraction is 60 %. Stage 1 diastolic dysfunction. Pulmonary artery systolic pressure is 38 mmHg. Mild aortic stenosis. Ordering Physician: Jayson Marin Referring Physician: Jayson Marin Performed By: Denisha Bocanegra, MICHAELCS, RVT
[2021-07-28 09:23] LABS: Cholesterol 214 mg/dL (200); High Density Lipoprotein 59 mg/dL; Triglycerides 114 mg/dL; Very Low Density Lipoprotein 23 mg/dL (5-40)
== END ==
PROVIDERS: Referring Provider Internal Medicine Cardiovascular Disease; Visit Provider Internal Medicine Cardiovascular Disease
DX: I35.0 Nonrheumatic aortic (valve) stenosis (principal); E78.5 Hyperlipidemia, unspecified
CPT/HCPCS: 36415; 80061; 93306

== ENCOUNTER → 2021-12-28 | Outpatient (CLI) | payer OTHER, MEDICARE, SELFPAY ==
[2021-12-28 09:23] LABS: Hemoglobin A1c 6.5 % (3.8-5.6)
[2021-12-28 09:26] LABS: ALB/GLOB Ratio 0.8 RATIO (0.9-2.4); AST(SGOT) 20 U/L (15-37); Alanine Aminotransfer ALT/SGPT 23 U/L (13-56); Albumin, Serum 3.6 g/dL (3.2-5.0); Alkaline Phosphatase 63 U/L (45-117); Anion Gap 3 (5-15); BUN 24 mg/dL (7-18); BUN/Creat Ratio 32.9 RATIO (10-20); Calcium,Total 8.8 mg/dL (8.5-10.1); Chloride 109 mmol/L (98-107); Cholesterol 168 mg/dL (200); Creatinine, Serum 0.73 mg/dL (0.55-1.02); EST Glomerular Filtration Rate 82 mL/min (>60); Est Glom Filt Rate - Afr Amer 100 mL/min (>60); Globulin 4.3 g/dL (2.2-4.2); Glucose 121 mg/dL (74-106); High Density Lipoprotein 71 mg/dL; Potassium 3.7 mmol/L (3.5-5.1); Protein, Total 7.9 g/dL (6.4-8.2); Sodium Level 142 mmol/L (136-145); Triglycerides 96 mg/dL; Very Low Density Lipoprotein 19 mg/dL (5-40)
== END | disposition home or self-care (01) ==
LOC: LAB 08:27
DX: E11.9 Type 2 diabetes mellitus without complications (principal)
CPT/HCPCS: 36415; 80053; 80061; 83036